=== PATIENT | female | born 1970 ===

== ENCOUNTER 2018-02-08 21:04 | Inpatient (IN) | payer MEDICAID, OTHER ==
[2018-02-08 21:04] VITALS: BMI 34.0
--- NOTE | 2018-02-08 21:51 | C.PDOC ---
History Of Present Illness 47 year old female with PMHx DM, HTN, PE, Chronic kidney disease presents to the ED c/o fever, abdominal pain and vomiting for the past 3 days. Patient states she has kidney stents placed on 2013 and have been changed each year last time was 2017. Patient also c/o burning on urination. Patient reports she is taking insulin and medication for her HTN. Patient denies chills, nausea, diarrhea, rash, hematuria, vaginal bleeding, vaginal discharge, weakness, numbness, CP, SOB. Time Seen by Provider: 02/08/18 21:47 Chief Complaint (Nursing): Abdominal Pain History Per: Patient History/Exam Limitations: no limitations Onset/Duration Of Symptoms: Days (3) Current Symptoms Are (Timing): Still Present Location Of Pain/Discomfort: Diffuse Radiation Of Pain To:: Flank Quality Of Discomfort: "Pain" Associated Symptoms: Fever, Vomiting, Urinary Symptoms. denies: Chills, Nausea, Diarrhea Alleviating Factors: None Recent travel outside of the [place]: No Additional History Per: Patient Abnormal Vaginal Bleeding: No Past Medical History Reviewed: Historical Data, Nursing Documentation, Vital Signs Vital Signs: Last Vital Signs Temp 98.4 F 02/08/18 21:12 Pulse 105 H 02/08/18 21:12 Resp 20 02/08/18 21:12 BP 157/98 H 02/08/18 21:12 Pulse Ox 97 02/08/18 21:12 - Medical History PMH: Anemia, Diabetes, Gastritis, HTN, Hypercholesterolemia, Malignancy (cervical CA post chemo), Pulmonary Embolism, Chronic Kidney Disease Surgical History: Endoscopy Denies: Pacemaker - [facility] Procedures CERVICAL CANAL DILATION (07/22/13) DILATION OF LEFT URETER WITH INTRALUMINAL DEVICE, ENDO (10/31/15) ENDOSCOP DEST OF OTH LESION OR TISU OF LRG INTESTN (08/14/14) EXCISION OF DUODENUM, ENDO, DIAGN (10/31/15) EXCISION OF STOMACH, PYLORUS, ENDO, DIAGN (10/31/15) INJECT ANTICOAGULANT (12/03/13) INJECT CA CHEMOTHER NEC (06/03/13) INJECT/INFUSE ELECTROLYT (09/07/14) INJECT/INFUSE NEC (09/07/14) OTHER ENDOSCOPY OF SM INTEST (06/03/13) PACKED CELL TRANSFUSION (12/03/13) PERCU NEPHROSTM W/O FRAG (06/03/13) PERCUTANEOUS PYELOGRAM (12/03/13) PLICATION OF VENA CAVA (12/03/13) RADIOTHERAPEUT PROC NEC (06/03/13) REMOV PYELOS/NEPHROS TUB (12/03/13) REMOVAL OF DRAINAGE DEVICE FROM URETER, ENDO (10/31/15) TRANSFUSE NONAUT RED BLOOD CELLS IN PERIPH VEIN, PERC (10/31/15) TU DESTRUC BLADD LES NEC (05/25/13) URETERAL CATHETERIZATION (12/03/13) VACCINATION NEC (12/03/13) Family History: States: Unknown Family Hx - Social History Hx Tobacco Use: No Hx Alcohol Use: No Hx Substance Use: No - Immunization History Hx Tetanus Toxoid Vaccination: No Hx Influenza Vaccination: No Hx Pneumococcal Vaccination: No Review Of Systems Constitutional: Positive for: Fever. Negative for: Chills Cardiovascular: Negative for: Chest Pain, Palpitations Respiratory: Negative for: Cough, Shortness of Breath Gastrointestinal: Positive for: Vomiting, Abdominal Pain. Negative for: Diarrhea Genitourinary: Positive for: Dysuria. Negative for: Hematuria, Vaginal Discharge, Vaginal Bleeding Musculoskeletal: Positive for: Back Pain Skin: Negative for: Rash Neurological: Negative for: Weakness, Numbness Physical Exam - Physical Exam Appears: Non-toxic, No Acute Distress Skin: Normal Color, Warm, Dry Head: Atraumatic, Normacephalic Eye(s): bilateral: Normal Inspection, PERRL, EOMI Neck: Normal ROM, Supple Chest: Symmetrical Cardiovascular: Rhythm Regular Respiratory: Normal Breath Sounds, No Rales, No Rhonchi, No Wheezing Gastrointestinal/Abdominal: Soft, Tenderness (epigastric), No Guarding, No Rebound Back: CVA Tenderness (left) Extremity: Normal ROM, No Tenderness, No Swelling Neurological/Psych: Oriented x3, Normal Speech, Normal Cognition Gait: Steady ED Course And Treatment - Laboratory Results Result Diagrams: 02/08/18 22:42 02/08/18 23:59 O2 Sat by Pulse Oximetry: 97 (ON RA) Pulse Ox Interpretation: Normal - CT Scan/US CT abd/pelvis Other Rad Studies (CT/US): Read By Radiologist, Radiology Report Reviewed CT/US Interpretation: CT SCAN OF THE ABDOMEN AND PELVIS WITHOUT ORAL OR IV CONTRAST. CLINICAL INDICATION: Left flank pain. TECHNIQUE: Axial and reformatted sagittal and coronal images of the abdomen pelvis obtained without IV contrast administration. COMPARISON: None. FINDINGS: Bilateral basilar subsegmental atelectatic pulmonary changes. 5.7 cm well-defined hypodense lesio n in the hepatic dome. Uncomplicated diverticulosis and moderate amount of fecal residue in the large bowels. Moderate right hydroureteronephrosis. Unremarkable right double-J catheter. Moderate left hydroureteronephrosis. Unremarkable left double-J catheter. IVC filter is seen. Normal unenhanced liver. Normal gallbladder and extrahepatic biliary system. Normal unenhanced spleen. Normal pancreas. . Normal bilateral adrenal glands. Normal size of the right kidney. There is no right renal mass. There are no right renal calculi. Normal size of the left kidney. There is no left renal mass. There are no left renal calculi. Normal visualized stomach. Normal small intestine. Normal colon. The appendix is visualized and appears normal. There is no demonstrated peritoneal fluid. Normal abdominal aorta. . Normal urinary bladder. There is no pelvic mass lesion or lymphadenopathy. There is no pelvic fluid. . Normal abdominal wall. Normal osseous structures. IMPRESSION: Bilateral basilar subsegmental atelectatic pulmonary changes. 5.7 cm well- defined hypodense lesion in the hepatic dome. Indeterminate. Uncomplicated diverticulosis and moderate amount of fecal residue in the large bowels. Moderate right hydroureteronephrosis. Unremarkable right double-J catheter. Moderate left hydroureteronephrosis. Unremarkable left double-J catheter. IVC filter is seen. . Electronically signed on Feb 09, 2018 1:24:58 AM EST by: Marjorie Foy M.D., Certified by ABR, MSK, Neuroradiology Medical Decision Making Medical Decision Making: Plan: * CT abd/pelvis * Labs * IV fluids * Zofran 4 mg IVP * Urine culture * UA 01:45 - discussed results with patient, patient has UTI and due to worsening kidney function patient is told she will nee to stay for observation. Patient agrees with plan 01:50 - spoke with Dr. Linda Shaw switchboard operator receptionist who accepts the patient for admission to his service Disposition Counseled Patient/Family Regarding: Studies Performed, Diagnosis - Disposition Disposition: HOSPITALIZED Disposition Time: 01:56 Condition: STABLE - Clinical Impression Clinical Impression: Acute on chronic kidney failure, Pyelonephritis, Anemia - Scribe Statement The provider has reviewed the documentation as recorded by the Scribe Porfirio Wharton All medical record entries made by the Nikkieibrufino were at my direction and p ersonally dictated by me. I have reviewed the chart and agree that the record accurately reflects my personal performance of the history, physical exam, medical decision making, and the department course for this patient. I have also personally directed, reviewed, and agree with the discharge instructions and disposition.
[2018-02-08] MEDS ORDERED: Sodium Chloride 0.9% 1,000 ML IV ONE (22:19)
[2018-02-08 22:48] LABS: BASO % 0.9 % (0.0-2.0); EOS # 0.2 K/uL (0.0-0.7); HEMOGLOBIN 9.2 g/dL (11.0-16.0); LYMPH # 1.3 K/uL (1.0-4.3); LYMPH % 23.7 % (20.0-40.0); MEAN CELL VOLUME 73.8 fL (81.0-99.0); MEAN CORPUSCULAR HEMOGLOBIN 23.8 pg (27.0-31.0); MEAN CORPUSCULAR HGB CONC 32.3 g/dL (33.0-37.0); MEAN PLATELET VOLUME 8.5 fL (7.2-11.7); MONO # 0.4 K/uL (0.0-0.8); MONO % 7.5 % (0.0-10.0); NEUT # 3.7 K/uL (1.8-7.0); NEUT % 64.9 % (50.0-75.0); RBC 3.87 Mil/uL (3.80-5.20); RED CELL DISTRIBUTION WIDTH 14.6 % (11.5-14.5)
[2018-02-08 22:50] LABS: WHITE BLOOD COUNT 5.6 K/uL (4.8-10.8)
[2018-02-08 22:57] LABS: SQUAMOUS EPITHIAL 1 /hpf (0-5); URINE BACTERIA RARE (<OCC); URINE BILIRUBIN NEGATIVE (NEGATIVE); URINE BLOOD 1+ (NEGATIVE); URINE CLARITY Clear (Clear); URINE COLOR Straw (YELLOW); URINE GLUCOSE (UA) 1+ mg/dL (Normal); URINE LEUKOCYTE ESTERASE 3+ Leu/uL (Negative); URINE PROTEIN NEGATIVE (NEGATIVE); URINE UROBILINOGEN NORMAL mg/dL (0.2-1.0)
[2018-02-09 00:29] LABS: ALB/GLOB RATIO 0.8 (1.0-2.1); ALBUMIN 3.4 g/dL (3.5-5.0); CALCIUM 8.5 mg/dl (8.6-10.4)
[2018-02-09] MEDS ORDERED: cefTRIAXone IV 1 gm in Dextros 50 ML IVPB STA (01:39)
[2018-02-09] MEDS ORDERED: cefTRIAXone 1 gm 1 GM/100 ML BAG IVPB ONE (01:49)
[2018-02-09] MEDS: (Novolin R) Insulin Human Regular 100 units/ml vial SC SCH ×4 (08:24→21:56)
[2018-02-09] MEDS ORDERED: Sodium Chloride 0.9% 1,000 ML IV SCH (08:45)
[2018-02-09] MEDS: cefTRIAXone 1 GM in Sodium Chloride 0.9% 100 ML IVPB SCH (09:19)
[2018-02-09] MEDS: Oxycodone/Acetaminophen 5/325 mg Tab PO PRN (09:27)
--- NOTE | 2018-02-09 10:10 | CT ---
Date of service: 02/08/2018 PROCEDURE: CT Abdomen and Pelvis without intravenous contrast HISTORY: left flank pain COMPARISON: 05/30/2017 TECHNIQUE: Without contrast.. Contrast dose: 0 Radiation dose: Total exam DLP = 544.38 mGy-cm. This CT exam was performed using one or more of the following dose reduction techniques: Automated exposure control, adjustment of the mA and/or kV according to patient size, and/or use of iterative reconstruction technique. FINDINGS: LOWER THORAX: Minimal linear scar/atelectasis in lingular segment left upper lobe. No infiltrate or pleural effusion. LIVER: 6.0 cm rounded low-attenuation mass in the superior right lobe of the liver beneath the dome of the diaphragm. Slightly decreased in size from prior examination. It is heterogeneous with areas of low attenuation likely reflecting central necrosis. There is no other hepatic mass identified. The liver is normal in size, contour and attenuation. There is no biliary ductal dilatation. GALLBLADDER AND BILE DUCTS: Unremarkable. PANCREAS: Unremarkable. No gross lesion or ductal dilatation. SPLEEN: Unremarkable. ADRENALS: Unremarkable. No mass. KIDNEYS AND URETERS: Severe bilateral hydronephrosis and hydroureter. Bilateral ureteral stents. Etiology for the urinary tract obstruction is not clear from this examination. No renal mass. No renal calculus. VASCULATURE: Unremarkable. No aortic aneurysm. No aortic atherosclerotic calcification or mural plaque present. BOWEL: Unremarkable. No obstruction. No gross mural thickening. APPENDIX: Unremarkable. Normal appendix. PERITONEUM: Unremarkable. No free fluid. No free air. LYMPH NODES: Mildly enlarged retroperitoneal nodes, largest up to approximately 13 mm short axis. Numerous shotty subcentimeter retroperitoneal nodes. Significance uncertain. No pelvic lymphadenopathy. Shotty subcentimeter gastrohepatic ligament lymphadenopathy. BLADDER: Nondistended. Bilateral ureteral stents. No gross abnormality. REPRODUCTIVE: Normal atrophic uterus, likely postmenopausal. Please correlate. BONES: No acute fracture. OTHER FINDINGS: None. IMPRESSION: Severe bilateral hydronephrosis and hydroureter. Bilateral ureteral stents. Large partially necrotic mass in the right lobe of the liver slightly decreased in size from examination of 05/30/2017. No biliary obstruction. Mild retroperitoneal lymphadenopathy, uncertain significance. The preliminary findings for this examination were reported by [facility] Radiology at 11:42 p.m. on 02/08/2018. There is discordance of this report with the preliminary findings. Presence of retroperitoneal lymphadenopathy was not described in the preliminary report of this examination.
[2018-02-09 11:31] LABS: BASO % 0.5 % (0.0-2.0); EOS # 0.2 K/uL (0.0-0.7); EOS % 4.4 % (0.0-4.0); HEMOGLOBIN 7.7 g/dL (11.0-16.0); LYMPH # 1.3 K/uL (1.0-4.3); LYMPH % 24.4 % (20.0-40.0); MEAN CELL VOLUME 74.1 fL (81.0-99.0); MEAN CORPUSCULAR HEMOGLOBIN 23.8 pg (27.0-31.0); MEAN CORPUSCULAR HGB CONC 32.2 g/dL (33.0-37.0); MEAN PLATELET VOLUME 8.2 fL (7.2-11.7); MONO # 0.4 K/uL (0.0-0.8); MONO % 8.5 % (0.0-10.0); NEUT # 3.2 K/uL (1.8-7.0); NEUT % 62.2 % (50.0-75.0); RBC 3.25 Mil/uL (3.80-5.20); RED CELL DISTRIBUTION WIDTH 14.3 % (11.5-14.5); WHITE BLOOD COUNT 5.1 K/uL (4.8-10.8)
[2018-02-09 11:46] LABS: ALB/GLOB RATIO 0.8 (1.0-2.1); ALBUMIN 3.3 g/dL (3.5-5.0); CALCIUM 8.7 mg/dl (8.6-10.4)
[2018-02-09] MEDS ORDERED: Sod Polystyrene Sulf 15 gm/60 ml Susp PO ONE ×2 (12:13→12:14)
[2018-02-09] MEDS ORDERED: Ferric Sodium Gluconat Complex 62.5 mg/5 ml Vial IVPB ONE (12:46)
[2018-02-09] MEDS ORDERED: Ferric Sodium Gluconat Complex 125 MG in Sodium Chloride 0.9% 100 ML IVPB ONE (14:00)
--- NOTE | 2018-02-09 15:33 | CP.PCM.CON ---
History of Present Illness - History of Present Illness History of Present Illness: Nephrology Consultation Note: Assessment: critical Acute Kidney Injury (N17.9) likely due to obstruction uropathy /hydroureteronephrosis Hyperkalemia, NAGMA Diabetic chronic Kidney Disease (E11.22) Hypertensive Chronic Kidney Disease (I12.9) Chronic Kidney Disease (N18.3) Stage 3 with ? mg proteinuria (R80.9) likely due to KIRSTIE, obstruction Anemia (D64.9), hx of cervical SCC Plan No acute need for renal replacement therapy at this time but may need soon and will need close follow up. anticipate renal recovery as urinary obstruction is relieved. pt will need ureteral stent change and or percutaneous nephrostomy tube placement. d/w IR and urology. if pt renally stable then will be planned for stent change monday however if renal function worsens with hyperkalemic then nephrostomy tube over . keep NPO MN. check PT/PTT/INR Hypertension control with meds as ordered. Maintain hemodynamics stable. Avoid hypotension. Patient not on ACEI/ARB due to recent KIRSTIE Monitor Input/Output, daily weights and renal function with basic metabolic panel continue with IVF as normal saline. added sodium bicarb ? recurrence of her malignancy. consult heme/onc. may need TELECOMMUNICATIONS PROFESSIONAL input PRBC as needed Check urine analysis, spot protein/creatinine, albumin/creatinine ratio Check HIV/Hep B and Hep C serology Anemia work up with TSAT/Ferritin/Vitamin B12/folate Check for 25-OH vitamin D, iPTH, phosphorus level. Dose meds/antibiotics for reduced GFR. Avoid fleets enema/magnesium based laxatives. Avoid nephrotoxins/NSAIDs/ iodinated contrast (unless needed emergently) Glycemic control Further work up/management as per primary team Thanks for allowing me to participate in care of your patient. Will follow patient with you. Please call if any Qs. had d/w team Dr Trevon Maria Office: [phone] Chief Complaint; nausea/vomitting Reason for consult: Acute Kidney Injury HPI: Pt is a 47 F with hx of diabetes Mellitus ( years), hypertension (years) CKD 3 with baseline cr 1.5 with AKIs in past, b/l hydroureteronephrosis s/p stents (Dr Mac), hx of cervical SCC presented with complaints of nasuea vomitting and upset stomach for last few days. renal consult for KIRSTIE. pt says she is making urine normally Denies OTC/herbal meds or NSAIDs except alleve for 2 days No recent iodinated contrast exposure. No obvious episodes of low BP. pt says last time stents were changed 1 year ago ROS: Cardiovascular: No chest pain. Pulmonary: No shortness of breath Gastrointestinal: denies abdominal pain No nausea. No vomiting. Genitourinary: mild pain while urinating. Denies blood in urine. All other negative except as mentioned in HPI Physical Examination: General Appearance: Comfortable, in no acute respiratory distress, co-operative . Vitals reviewed and noted as below Head; Atraumatic, normocephalic ENT: no ulcers no thrush. Tongue is midline. Oropharynx: no rash or ulcers. EYES: Pupils are equal, round and reactive to light accommodation. Eye muscles and extraocular movement intact. Sclera is anicteric. Neck; supple no lymphadenopathy, no thyromegaly or bruit Lungs: Normal respiratory rate/effort. Breath sounds bilateral equal and clear Heart: Normal rate. s1s2 normal. No rub or gallop. Extremities: no edema. No varicose veins Neurological: Patient is alert, awake and oriented to person, place and time. No focal deficit. Strength bilateral appropriate and equal Skin: Warm and dry. Normal turgor. No rash. Palpitation: Normal elasticity for age Abdomen: Abdomen is soft/distended. Bowel sounds +. There is no abdominal tenderness, no guarding/rigidity no organomegaly Psych: limited insight and normal affect/mood MSK: no joint tenderness or swelling. Digits and nails normal, no deformity : kidney or bladder not palpable Labs/imaging reviewed. Past medical history, past surgical history, family history, social history, allergy reviewed and noted as below Family hx: no hx of CKD. Rest non-contributory imaging: b/l severe hydronephrosis. b/l ureteral stents. has retroperitoneal lymphadenpathy and ? necrotic mass above liver 6 cm size Past Patient History - Infectious Disease Hx of Infectious Diseases: None - Tetanus Immunizations Tetanus Immunization: Unknown - Past Medical History & Family History Past Medical History?: Yes - Past Social History Smoking Status: Never Smoked - CARDIAC Hx Cardiac Disorders: Yes Hx Hypercholesterolemia: Yes Hx Hypertension: Yes Hx Pacemaker: No - PULMONARY Hx Respiratory Disorders: Yes Hx Pulmonary Embolism: Yes - NEUROLOGICAL Hx Neurological Disorder: No Hx Paralysis: No - HEENT Hx HEENT Problems: No - RENAL Hx Chronic Kidney Disease: Yes - ENDOCRINE/METABOLIC Hx Endocrine Disorders: Yes Hx Diabetes Mellitus Type 1: Yes - HEMATOLOGICAL/ONCOLOGICAL Hx Blood Disorders: Yes Hx Anemia: Yes - INTEGUMENTARY Hx Dermatological Problems: No - MUSCULOSKELETAL/RHEUMATOLOGICAL Hx Musculoskeletal Disorders: No Hx Falls: No - GASTROINTESTINAL Hx Gastrointestinal Disorders: Yes Hx Gastritis: Yes - GENITOURINARY/GYNECOLOGICAL Hx Genitourinary Disorders: Yes Hx Cervical Cancer: Yes (RADIATION AND CHEMO ONLY-NO SURGERY) Hx Urinary Tract Infection: Yes Other/Comment: Vaginal tumor cancer with radiation - PSYCHIATRIC Hx Psychophysiologic Disorder: No Hx Substance Use: No - SURGICAL HISTORY Hx Surgeries: Yes Other/Comment: kidney surgery - ANESTHESIA Hx Anesthesia: Yes Hx Anesthesia Reactions: Yes (VOMITING) Hx Malignant Hyperthermia: No Meds Allergies/Adverse Reactions: Allergies Allergy/AdvReac Type Severity Reaction Status Date / Time No Known Allergies Allergy Verified 02/08/18 21:16 - Medications Medications: Current Medications Amlodipine Besylate (Norvasc) 5 mg PO DAILY SHELLEY Last Admin: 02/09/18 09:18 Dose: 5 mg Ceftriaxone Sodium 1 gm/ (Sodium Chloride) 100 mls @ 100 mls/hr IVPB DAILY SHELLEY; Protocol Last Admin: 02/09/18 09:19 Dose: 100 mls/hr Sodium Chloride (Sodium Chloride 0.9%) 1,000 mls @ 100 mls/hr IV .Q10H SHELLEY Last Admin: 02/09/18 08:45 Dose: 100 mls/hr Ferric Sodium Gluconate Complex 125 mg/ Sodium Chloride 110 mls @ 110 mls/hr IVPB ONCE ONE Stop: 02/09/18 14:59 Influenza Virus Vaccine (Fluzone Quad [id number]) 60 mcg IM .ONCE ONE Stop: 02/11/18 10:01 Insulin Human Regular (Novolin R) 0 unit SC ACHS SHELLEY; Protocol Last Admin: 02/09/18 08:24 Dose: 2 units Oxycodone/Acetaminophen (Percocet 5/325 Mg Tab) 1 tab PO Q4H PRN PRN Reason: Pain, Mild (1-3) Stop: 02/12/18 02:34 Last Admin: 02/09/18 09:27 Dose: 1 tab Sodium Polystyrene Sulfonate (Kayexalate Susp) 15 gm PO DAILY SHELLEY Stop: 02/13/18 10:01 Results - Vital Signs Recent Vital Signs: Last Vital Signs Temp 98.3 F 02/09/18 08:42 Pulse 76 02/09/18 10:10 Resp 28 H 02/09/18 08:42 BP 145/74 02/09/18 10:10 Pulse Ox 100 02/09/18 08:42 - Labs Result Diagrams: 02/09/18 11:21 02/09/18 11:21 Labs: Laboratory Results - last 24 hr 02/08/18 02/08/18 02/08/18 21:11 22:42 22:42 WBC 5.6 D RBC 3.87 Hgb 9.2 L Hct 28.5 L MCV 73.8 L MCH 23.8 L MCHC 32.3 L RDW 14.6 H Plt Count 262 MPV 8.5 Neut % (Auto) 64.9 Lymph % (Auto) 23.7 [place] % (Auto) 7.5 Eos % (Auto) 3.0 Baso % (Auto) 0.9 Neut # (Auto) 3.7 Lymph # (Auto) 1.3 [place] # (Auto) 0.4 Eos # (Auto) 0.2 Baso # (Auto) 0.0 Sodium Potassium Chloride Carbon Dioxide Anion Gap BUN Creatinine Est GFR ( Amer) Est GFR (Non-Af Amer) POC Glucose (mg/dL) 186 H Random Glucose Calcium Phosphorus Magnesium Total Bilirubin AST ALT Alkaline Phosphatase Total Protein Albumin Globulin Albumin/Globulin Ratio Urine Color Straw Urine Clarity Clear Urine pH 7.0 Ur Specific [place] 1.005 Urine Protein Negative Urine Glucose (UA) 1+ Urine Ketones Negative Urine Blood 1+ H Urine Nitrate Negative Urine Bilirubin Negative Urine Urobilinogen Normal Ur Leukocyte Esterase 3+ H Urine WBC (Auto) 28 H Urine RBC (Auto) 5 H Ur Squamous Epith Cells 1 Urine Bacteria Rare 02/08/18 02/09/18 02/09/18 23:59 07:55 11:21 WBC 5.1 RBC 3.25 L Hgb 7.7 L Hct 24.1 L MCV 74.1 L MCH 23.8 L MCHC 32.2 L RDW 14.3 Plt Count 244 MPV 8.2 Neut % (Auto) 62.2 Lymph % (Auto) 24.4 [place] % (Auto) 8.5 Eos % (Auto) 4.4 H Baso % (Auto) 0.5 Neut # (Auto) 3.2 Lymph # (Auto) 1.3 [place] # (Auto) 0.4 Eos # (Auto) 0.2 Baso # (Auto) 0.0 Sodium 140 Potassium 5.1 Chloride 110 H Carbon Dioxide 19 L Anion Gap 15 BUN 43 H Creatinine 5.6 H Est GFR ( Amer) 10 Est GFR (Non-Af Amer) 8 POC Glucose (mg/dL) 214 H Random Glucose 151 H Calcium 8.5 L Phosphorus Magnesium Total Bilirubin 0.3 AST 12 L D ALT 13 Alkaline Phosphatase 114 Total Protein 7.5 Albumin 3.4 L Globulin 4.1 H Albumin/Globulin Ratio 0.8 L Urine Color Urine Clarity Urine pH Ur Specific [place] Urine Protein Urine Glucose (UA) Urine Ketones Urine Blood Urine Nitrate Urine Bilirubin Urine Urobilinogen Ur Leukocyte Esterase Urine WBC (Auto) Urine RBC (Auto) Ur Squamous Epith Cells Urine Bacteria 02/09/18 02/09/18 11:21 11:40 WBC RBC Hgb Hct MCV MCH MCHC RDW Plt Count MPV Neut % (Auto) Lymph % (Auto) [place] % (Auto) Eos % (Auto) Baso % (Auto) Neut # (Auto) Lymph # (Auto) [place] # (Auto) Eos # (Auto) Baso # (Auto) Sodium 137 Potassium 5.9 H Chloride 108 H Carbon Dioxide 19 L Anion Gap 16 BUN 41 H Creatinine 5.9 H Est GFR ( Amer) 9 Est GFR (Non-Af Amer) 8 POC Glucose (mg/dL) 157 H Random Glucose 179 H Calcium 8.7 Phosphorus 4.5 Magnesium 1.7 Total Bilirubin 0.3 AST 16 ALT 14 Alkaline Phosphatase 92 Total Protein 7.6 Albumin 3.3 L Globulin 4.3 H Albumin/Globulin Ratio 0.8 L Urine Color Urine Clarity Urine pH Ur Specific [place] Urine Protein Urine Glucose (UA) Urine Ketones Urine Blood Urine Nitrate Urine Bilirubin Urine Urobilinogen Ur Leukocyte Esterase Urine WBC (Auto) Urine RBC (Auto) Ur Squamous Epith Cells Urine Bacteria
--- NOTE | 2018-02-09 16:12 | CP.PCM.PN ---
Subjective - Date & Time of Evaluation Date of Evaluation: 02/09/18 Time of Evaluation: 10:35 - Subjective Subjective: Medicine progress note (Dr. Mckeon's service) Patient was seen and examined at bedside. Patient states that she is with mild symptomatic improvement but still admits to nausea and lower abdominal and back discomfort. Patient denies fever, chills, vomiting, chest pain, palpitations, shortness of breath and dizziness. 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 Patient also admits to associated symptoms of dysuria. Patient admits to symptoms of subjective fever, chills, nausea and vomiting. PMHx: Bilateral hydronephrosis CKD stage 2; Rectosigmoid AVM and lower GI bleed; Squamous cell carcinoma of the cervix s/p chemoradiotherapy and conization in 2016 still with uterus and ovaries, DM on insulin, HTN, gastritis and chronic non-compliance, anemia iron deficiency Surgeries: tubal ligation, colonoscopy to fix rectosigmoid AVM, conization of cervix Famhx: denies Meds: Patient has history of chronic medical non compliance. ( Please refer EMR) Allergies: Denies Social: Lives at home, unemployed. Denies current or former use of tobacco, ETOH or illicit drug tamanna. no EtOH. With 4 children Objective - Vital Signs/Intake and Output Vital Signs (last 24 hours): Temp Pulse Resp BP Pulse Ox 98.3 F 76 28 H 145/74 100 02/09/18 08:42 02/09/18 10:10 02/09/18 08:42 02/09/18 10:10 02/09/18 08:42 Intake and Output: 02/09/18 02/09/18 06:59 18:59 Intake Total 200 Balance 200 - Medications Medications: Current Medications Amlodipine Besylate (Norvasc) 5 mg PO DAILY [facility] Last Admin: 02/09/18 09:18 Dose: 5 mg Ceftriaxone Sodium 1 gm/ (Sodium Chloride) 100 mls @ 100 mls/hr IVPB DAILY [facility]; Protocol Last Admin: 02/09/18 09:19 Dose: 100 mls/hr Sodium Chloride (Sodium Chloride 0.9%) 1,000 mls @ 100 mls/hr IV .Q10H [facility] Last Admin: 02/09/18 08:45 Dose: 100 mls/hr Influenza Virus Vaccine (Fluzone Quad [id number]) 60 mcg IM .ONCE ONE Stop: 02/11/18 10:01 Insulin Human Regular (Novolin R) 0 unit SC ACHS [facility]; Protocol Last Admin: 02/09/18 12:30 Dose: 1 units Oxycodone/Acetaminophen (Percocet 5/325 Mg Tab) 1 tab PO Q4H PRN PRN Reason: Pain, Mild (1-3) Stop: 02/12/18 02:34 Last Admin: 02/09/18 09:27 Dose: 1 tab Sodium Bicarbonate (Sodium Bicarbonate Tab) 1,300 mg PO TID [facility] Sodium Polystyrene Sulfonate (Kayexalate Susp) 15 gm PO DAILY [facility] Stop: 02/13/18 10:01 - Labs Labs: 02/09/18 11:21 02/09/18 11:21 - Constitutional Appears: No Acute Distress - Head Exam Head Exam: ATRAUMATIC, NORMAL INSPECTION - Eye Exam Eye Exam: EOMI, Normal appearance - ENT Exam ENT Exam: Mucous Membranes Moist - Respiratory Exam Respiratory Exam: Clear to Ausculation Bilateral, NORMAL BREATHING PATTERN. absent: Rhonchi, Wheezes - Cardiovascular Exam Cardiovascular Exam: REGULAR RHYTHM, +S1, +S2. absent: Tachycardia, Irregular Rhythm - GI/Abdominal Exam GI & Abdominal Exam: Soft, Normal Bowel Sounds. absent: Distended, Firm, Guarding, Rigid, Tenderness - Extremities Exam Extremities Exam: Normal Inspection. absent: Calf Tenderness, Pedal Edema - Back Exam Back Exam: CVA tenderness (L), CVA tenderness (R) Additional comments: Right CVA> Left CVA - Neurological Exam Neurological Exam: Alert, Awake, Oriented x3 - Psychiatric Exam Psychiatric exam: Normal Affect - Skin Skin Exam: Normal Color Assessment and Plan (1) Flank pain Assessment & Plan: Consultation: - Dr. Andrew hampton Management as per recommendation Possible plans for ureteral stent placement on Monday Imaging: Abdomen/Pelvis CT: Severe bilateral hydronephrosis and hydroureter. Bilateral ureteral stents. Large partially necrotic mass in the right lobe of the liver slightly decreased in size from examination of 05/30/2017. No biliary ob struction. Mild retroperitoneal lymphadenopathy, uncertain significance. There is discordance of this report with the preliminary findings. Presence of retroperitoneal lymphadenopathy was not described in the preliminary report of this examination. Labs/Vital signs: - UA: le (3+) - Afebrile Medications: Rocephine 1gm IV daily NS @100mls/hr Percocet 1 tab PO Q4H PRN Status: Acute (2) Acute on chronic kidney failure Assessment & Plan: 2/2 uropathy obstruction/hydroureternephrosis Consultation: - Dr. Maria---> Help appreciated Management as per recommendation Recommendation for ureteral change or placement for nephrostomy percutaneous placement Avoid Acei/ARB NS @ 75cc/hr due to HTN Sodium Bicarbonate 1,300mg PO TID Status: Acute (3) Hypertension Assessment & Plan: Norvasc 5mg PO daily Status: Acute (4) Anemia of renal disease Assessment & Plan: H/H: 9.2/28.5--->7.7/24.1 Given ferrlecit 125mg IV once Continue to monitor labs F/u stool occult Type and screen ordered Status: Acute (5) Hyperkalemia Assessment & Plan: 2/2 to acute renal failure Kayexalate 30gm once Kayexalate 15gm PO daily ( 3 days) Monitor with am labs Status: Acute (6) Prophylactic measure Assessment & Plan: DVT: SCDs, chemical anti-coagulate contraindicated due to acute anemia GI: Not indicated at this time Disposition: Plans for possible ureteral stent replacement monday All plans and management discussed with Dr. Mckeon Status: Acute
[2018-02-09] MEDS: Sodium Chloride 0.9% 1,000 ML IV SCH (16:30)
[2018-02-09 17:49] LABS: IRON 207 ug/dL (37-170)
[2018-02-09 17:58] LABS: % IRON SATURATION 100 (20-55); TOTAL IRON BINDING CAPACITY 206 ug/dL (250-450)
[2018-02-09 18:32] LABS: BLOOD UREA NITROGEN 37 mg/dL (7-17); GFR NON-AFRICAN AMERICAN 8
[2018-02-09 19:03] LABS: HIV 1&2 ANTIBODY NEGATIVE (NEGATIVE)
[2018-02-09 19:30] LABS: HEPATITIS B SURFACE AG Negative (NEGATIVE)
[2018-02-09 19:35] LABS: HEPATITIS B CORE AB NEGATIVE (NEGATIVE)
[2018-02-09 19:48] LABS: HEPATITIS C ANTIBODY NEGATIVE (NEGATIVE)
[2018-02-09 20:05] LABS: FOLATE 9.4 ng/mL
[2018-02-09 20:22] LABS: INR 1.1; PROTHROMBIN TIME 12.3 SECONDS (9.7-12.2)
[2018-02-10] MEDS: Sodium Chloride 0.9% 1,000 ML IV SCH ×2 (04:30→20:00)
[2018-02-10 07:34] LABS: BASO % 0.7 % (0.0-2.0); EOS # 0.2 K/uL (0.0-0.7); EOS % 4.4 % (0.0-4.0); HEMOGLOBIN 8.1 g/dL (11.0-16.0); LYMPH # 1.5 K/uL (1.0-4.3); LYMPH % 26.6 % (20.0-40.0); MEAN PLATELET VOLUME 8.1 fL (7.2-11.7); MONO # 0.4 K/uL (0.0-0.8); MONO % 7.4 % (0.0-10.0); NEUT # 3.4 K/uL (1.8-7.0); NEUT % 60.9 % (50.0-75.0); RBC 3.38 Mil/uL (3.80-5.20); RED CELL DISTRIBUTION WIDTH 14.3 % (11.5-14.5); WHITE BLOOD COUNT 5.6 K/uL (4.8-10.8)
[2018-02-10 08:10] LABS: ALB/GLOB RATIO 0.8 (1.0-2.1); ALBUMIN 3.4 g/dL (3.5-5.0); CALCIUM 8.9 mg/dl (8.6-10.4)
[2018-02-10] MEDS: (Novolin R) Insulin Human Regular 100 units/ml vial SC SCH ×4 (08:28→21:30)
[2018-02-10] MEDS ORDERED: Ergocalciferol 50,000 Intl Units Cap PO SCH (10:00)
[2018-02-10] MEDS: Sod Polystyrene Sulf 15 gm/60 ml Susp PO SCH (10:15)
[2018-02-10] MEDS: cefTRIAXone 1 GM in Sodium Chloride 0.9% 100 ML IVPB SCH (10:21)
--- NOTE | 2018-02-10 15:45 | CP.PCM.PN ---
Subjective - Date & Time of Evaluation Date of Evaluation: 02/10/18 Time of Evaluation: 15:44 - Subjective Subjective: Nephrology Consultation Note: Assessment: stable Acute Kidney Injury (N17.9) likely due to obstruction uropathy/hy droureteronephrosis Hyperkalemia, NAGMA Diabetic chronic Kidney Disease (E11.22) Hypertensive Chronic Kidney Disease (I12.9) Chronic Kidney Disease (N18.3) Stage 3 with ? mg proteinuria (R80.9) likely due to KIRSTIE, obstruction Anemia (D64.9), hx of cervical SCC Plan No acute need for renal replacement therapy at this time but may need soon and will need close follow up. anticipate renal recovery as urinary obstruction is relieved. pt will need ureteral stent change and or percutaneous nephrostomy tube placement. d/w IR and urology. if pt renally stable then will be planned for stent change monday however if renal function worsens with hyperkalemic then nephrostomy tube over . stable Cr and K today. hence will await to change stent monday Hypertension control with meds as ordered. Maintain hemodynamics stable. Avoid hypotension. Patient not on ACEI/ARB due to recent KIRSTIE Monitor Input/Output, daily weights and renal function with basic metabolic panel continue with IVF as normal saline. added sodium bicarb ? recurrence of her malignancy. consult heme/onc. may need [employer] SPECIALIST input PRBC as needed Check urine analysis, spot protein/creatinine, albumin/creatinine ratio Check HIV/Hep B and Hep C serology Anemia work up with TSAT/Ferritin/Vitamin B12/folate Check for 25-OH vitamin D, iPTH, phosphorus level. Dose meds/antibiotics for reduced GFR. Avoid fleets enema/magnesium based laxatives. Avoid nephrotoxins/NSAIDs/ iodinated contrast (unless needed emergently) Glycemic control Further work up/management as per primary team Thanks for allowing me to participate in care of your patient. Will follow patient with you. Please call if any Qs. had d/w team Dr Trevon Maria Office: [phone] Chief Complaint; nausea/vomitting Reason for consult: Acute Kidney Injury HPI: Pt is a 47 F with hx of diabetes Mellitus ( years), hypertension (years) CKD 3 with baseline cr 1.5 with AKIs in past, b/l hydroureteronephrosis s/p stents (Dr Mac), hx of cervical SCC presented with complaints of nasuea vo mitting and upset stomach for last few days. renal consult for KIRSTIE. pt says she is making urine normally Denies OTC/herbal meds or NSAIDs except alleve for 2 days No recent iodinated contrast exposure. No obvious episodes of low BP. pt says last time stents were changed 1 year ago ROS: Cardiovascular: No chest pain. Pulmonary: No shortness of breath Gastrointestinal: denies abdominal pain No nausea. No vomiting. Genitourinary: mild pain while urinating. Denies blood in urine. All other negative except as mentioned in HPI Physical Examination: General Appearance: Comfortable, in no acute respiratory distress, co-operative . Vitals reviewed and noted as below Head; Atraumatic, normocephalic ENT: no ulcers no thrush. Tongue is midline. Oropharynx: no rash or ulcers. EYES: Pupils are equal, round and reactive to light accommodation. Eye muscles and extraocular movement intact. Sclera is anicteric. Neck; supple no lymphadenopathy, no thyromegaly or bruit Lungs: Normal respiratory rate/effort. Breath sounds bilateral equal and clear Heart: Normal rate. s1s2 normal. No rub or gallop. Extremities: no edema. No varicose veins Neurological: Patient is alert, awake and oriented to person, place and time. No focal deficit. Strength bilateral appropriate and equal Skin: Warm and dry. Normal turgor. No rash. Palpitation: Normal elasticity for age Abdomen: Abdomen is soft/distended. Bowel sounds +. There is no abdominal tenderness, no guarding/rigidity no organomegaly Psych: limited insight and normal affect/mood MSK: no joint tenderness or swelling. Digits and nails normal, no deformity : kidney or bladder not palpable Labs/imaging reviewed. Past medical history, past surgical history, family history, social history, allergy reviewed and noted as below Family hx: no hx of CKD. Rest non-contributory imaging: b/l severe hydronephrosis. b/l ureteral stents. has retroperitoneal lymphadenpathy and ? necrotic mass above liver 6 cm size Objective - Vital Signs/Intake and Output Vital Signs (last 24 hours): Temp Pulse Resp BP Pulse Ox 98.1 F 100 H 20 151/93 H 95 02/10/18 07:00 02/10/18 07:00 02/10/18 07:00 02/10/18 07:00 02/10/18 07:00 Intake and Output: 02/10/18 02/10/18 06:59 18:59 Intake Total 600 Balance 600 - Medications Medications: Current Medications Amlodipine Besylate (Norvasc) 5 mg PO DAILY [facility] Last Admin: 02/10/18 10:15 Dose: 5 mg Ergocalciferol (Drisdol 50,000 Intl Units Cap) 1 cap PO Q7D [facility] Last Admin: 02/10/18 10:14 Dose: 1 cap Ceftriaxone Sodium 1 gm/ (Sodium Chloride) 100 mls @ 100 mls/hr IVPB DAILY [facility]; Protocol Last Admin: 02/10/18 10:21 Dose: 100 mls/hr Sodium Chloride (Sodium Chloride 0.9%) 1,000 mls @ 75 mls/hr IV .[id number] [facility] Last Admin: 02/10/18 04:30 Dose: 75 mls/hr Influenza Virus Vaccine (Fluzone Quad [id number]) 60 mcg IM .ONCE ONE Stop: 02/11/18 10:01 Insulin Human Regular (Novolin R) 0 unit SC ACHS [facility]; Protocol Last Admin: 02/10/18 12:11 Dose: 1 units Ondansetron HCl (Zofran Inj) 4 mg IVP Q6 PRN PRN Reason: Nausea/Vomiting Last Admin: 02/10/18 10:21 Dose: 4 mg Oxycodone/Acetaminophen (Percocet 5/325 Mg Tab) 1 tab PO Q4H PRN PRN Reason: Pain, Mild (1-3) Stop: 02/12/18 02:34 Last Admin: 02/09/18 09:27 Dose: 1 tab Sodium Bicarbonate (Sodium Bicarbonate Tab) 1,300 mg PO TID [facility] Last Admin: 02/10/18 14:04 Dose: 1,300 mg Sodium Polystyrene Sulfonate (Kayexalate Susp) 15 gm PO DAILY [facility] Stop: 02/13/18 10:01 Last Admin: 02/10/18 10:15 Dose: 15 gm - Labs Labs: 02/10/18 07:20 02/10/18 07:20 PT 12.3 SECONDS (9.7-12.2) H 02/09/18 20:05 INR 1.1 02/09/18 20:05 APTT 33 SECONDS (21-34) 02/09/18 20:05
--- NOTE | 2018-02-10 19:54 | CP.PCM.CON ---
History of Present Illness - History of Present Illness History of Present Illness: 47 year old female with a history of HTN, DM, PE, cervical cancer diagnosed in 2014 (IIIB) complicated by hydronephrosis s/p B/L ureteral stents, s/p chemoradiation with Dr. Saldana, presenting with N/V and burning with urination. The patient notes to worsening flank pain associated with N/V. A CT scan of the A/P was done which revealed retroperitoneal lymphadenopathy and a necrotic liver mass. Of note, an MRI of the abdomen in 2013 revealed this liver mass which was felt to be a hemangioma. Past medical history: HTN, DM, PE Past surgical history: Denies Family history: Denies hematologic and oncologic problems Social history: Denies tobacco, alcohol, and illicit drug use. Allergies: NKA Review of systems: All remaining review of systems including HEENT, cardiovascular, respiratory, gastrointestinal, genitourinary, musculoskeletal, dermatologic, neurologic and psychiatric are negative unless mentioned in the HPI. Past Patient History - Infectious Disease Hx of Infectious Diseases: None - Tetanus Immunizations Tetanus Immunization: Unknown - Past Medical History & Family History Past Medical History?: Yes - Past Social History Smoking Status: Never Smoked - CARDIAC Hx Cardiac Disorders: Yes Hx Hypercholesterolemia: Yes Hx Hypertension: Yes Hx Pacemaker: No - PULMONARY Hx Respiratory Disorders: Yes Hx Pulmonary Embolism: Yes - NEUROLOGICAL Hx Neurological Disorder: No Hx Paralysis: No - HEENT Hx HEENT Problems: No - RENAL Hx Chronic Kidney Disease: Yes - ENDOCRINE/METABOLIC Hx Endocrine Disorders: Yes Hx Diabetes Mellitus Type 1: Yes - HEMATOLOGICAL/ONCOLOGICAL Hx Blood Disorders: Yes Hx Anemia: Yes - INTEGUMENTARY Hx Dermatological Problems: No - MUSCULOSKELETAL/RHEUMATOLOGICAL Hx Musculoskeletal Disorders: No Hx Falls: No - GASTROINTESTINAL Hx Gastrointestinal Disorders: Yes Hx Gastritis: Yes - GENITOURINARY/GYNECOLOGICAL Hx Genitourinary Disorders: Yes Hx Cervical Cancer: Yes (RADIATION AND CHEMO ONLY-NO SURGERY) Hx Urinary Tract Infection: Yes Other/Comment: Vaginal tumor cancer with radiation - PSYCHIATRIC Hx Psychophysiologic Disorder: No Hx Substance Use: No - SURGICAL HISTORY Hx Surgeries: Yes Other/Comment: kidney surgery - ANESTHESIA Hx Anesthesia: Yes Hx Anesthesia Reactions: Yes (VOMITING) Hx Malignant Hyperthermia: No Meds Allergies/Adverse Reactions: Allergies Allergy/AdvReac Type Severity Reaction Status Date / Time No Known Allergies Allergy Verified 02/08/18 21:16 - Medications Medications: Current Medications Amlodipine Besylate (Norvasc) 10 mg PO DAILY [facility] Ergocalciferol (Drisdol 50,000 Intl Units Cap) 1 cap PO Q7D [facility] Last Admin: 02/10/18 10:14 Dose: 1 cap Ceftriaxone Sodium 1 gm/ (Sodium Chloride) 100 mls @ 100 mls/hr IVPB DAILY [facility]; Protocol Last Admin: 02/10/18 10:21 Dose: 100 mls/hr Sodium Chloride (Sodium Chloride 0.9%) 1,000 mls @ 75 mls/hr IV .[id number] [facility] Last Admin: 02/10/18 04:30 Dose: 75 mls/hr Influenza Virus Vaccine (Fluzone Quad [id number]) 60 mcg IM .ONCE ONE Stop: 02/11/18 10:01 Insulin Human Regular (Novolin R) 0 unit SC ACHS [facility]; Protocol Last Admin: 02/10/18 17:24 Dose: 2 units Ondansetron HCl (Zofran Inj) 4 mg IVP Q6 PRN PRN Reason: Nausea/Vomiting Last Admin: 02/10/18 10:21 Dose: 4 mg Oxycodone/Acetaminophen (Percocet 5/325 Mg Tab) 1 tab PO Q4H PRN PRN Reason: Pain, Mild (1-3) Stop: 02/12/18 02:34 Last Admin: 02/09/18 09:27 Dose: 1 tab Sodium Bicarbonate (Sodium Bicarbonate Tab) 1,300 mg PO TID [facility] Last Admin: 02/10/18 17:24 Dose: 1,300 mg Sodium Polystyrene Sulfonate (Kayexalate Susp) 15 gm PO DAILY [facility] Stop: 02/13/18 10:01 Last Admin: 02/10/18 10:15 Dose: 15 gm Physical Exam - Head Exam Head Exam: ATRAUMATIC - Eye Exam Eye Exam: Normal appearance - ENT Exam ENT Exam: Mucous Membranes Dry - Respiratory Exam Respiratory Exam: NORMAL BREATHING PATTERN - Cardiovascular Exam Cardiovascular Exam: +S1, +S2 - GI/Abdominal Exam GI & Abdominal Exam: Normal Bowel Sounds - Extremities Exam Extremities exam: Positive for: normal inspection - Neurological Exam Neurological exam: Oriented x3 - Psychiatric Exam Psychiatric exam: Normal Affect, Normal Mood - Skin Skin Exam: Warm Results - Vital Signs Recent Vital Signs: Last Vital Signs Temp 98.6 F 02/10/18 15:56 Pulse 93 H 02/10/18 15:56 Resp 20 02/10/18 15:56 BP 166/91 H 02/10/18 15:56 Pulse Ox 98 02/10/18 15:56 - Labs Result Diagrams: 02/10/18 07:20 02/10/18 07:20 Labs: Laboratory Results - last 24 hr 02/09/18 02/09/18 02/09/18 17:04 17:04 20:05 WBC RBC Hgb Hct MCV MCH MCHC RDW Plt Count MPV Neut % (Auto) Lymph % (Auto) Gilchrist % (Auto) Eos % (Auto) Baso % (Auto) Neut # (Auto) Lymph # (Auto) Gilchrist # (Auto) Eos # (Auto) Baso # (Auto) PT 12.3 H INR 1.1 APTT 33 Sodium Potassium Chloride Carbon Dioxide Anion Gap BUN Creatinine Est GFR ( Amer) Est GFR (Non-Af Amer) POC Glucose (mg/dL) Random Glucose Calcium Phosphorus Magnesium Total Bilirubin AST ALT Alkaline Phosphatase Total Protein Albumin Globulin Albumin/Globulin Ratio Vitamin B12 298 25-OH Vitamin D Total Folate 9.4 Urine HCG, Qual Blood Type A POSITIVE Antibody Screen Negative 02/09/18 02/10/18 02/10/18 21:20 06:57 07:00 WBC RBC Hgb Hct MCV MCH MCHC RDW Plt Count MPV Neut % (Auto) Lymph % (Auto) Gilchrist % (Auto) Eos % (Auto) Baso % (Auto) Neut # (Auto) Lymph # (Auto) Gilchrist # (Auto) Eos # (Auto) Baso # (Auto) PT INR APTT Sodium Potassium Chloride Carbon Dioxide Anion Gap BUN Creatinine Est GFR ( Amer) Est GFR (Non-Af Amer) POC Glucose (mg/dL) 203 H 185 H Random Glucose Calcium Phosphorus Magnesium Total Bilirubin AST ALT Alkaline Phosphatase Total Protein Albumin Globulin Albumin/Globulin Ratio Vitamin B12 25-OH Vitamin D Total Folate Urine HCG, Qual Negative Blood Type Antibody Screen 02/10/18 02/10/18 02/10/18 07:20 07:20 07:20 WBC 5.6 RBC 3.38 L Hgb 8.1 L Hct 25.4 L MCV 75.0 L MCH 24.0 L MCHC 32.0 L RDW 14.3 Plt Count 258 MPV 8.1 Neut % (Auto) 60.9 Lymph % (Auto) 26.6 Gilchrist % (Auto) 7.4 Eos % (Auto) 4.4 H Baso % (Auto) 0.7 Neut # (Auto) 3.4 Lymph # (Auto) 1.5 Gilchrist # (Auto) 0.4 Eos # (Auto) 0.2 Baso # (Auto) 0.0 PT INR APTT Sodium 140 Potassium 5.3 H Chloride 110 H Carbon Dioxide 20 L Anion Gap 15 BUN 35 H Creatinine 5.7 H Est GFR ( Amer) 10 Est GFR (Non-Af Amer) 8 POC Glucose (mg/dL) Random Glucose 192 H Calcium 8.9 Phosphorus 4.7 H Magnesium 1.6 Total Bilirubin 0.4 AST 12 L D ALT 6 L D Alkaline Phosphatase 97 Total Protein 7.7 Albumin 3.4 L Globulin 4.3 H Albumin/Globulin Ratio 0.8 L Vitamin B12 25-OH Vitamin D Total < 12.8 L Folate Urine HCG, Qual Blood Type Antibody Screen 02/10/18 02/10/18 11:21 15:34 WBC RBC Hgb Hct MCV MCH MCHC RDW Plt Count MPV Neut % (Auto) Lymph % (Auto) Gilchrist % (Auto) Eos % (Auto) Baso % (Auto) Neut # (Auto) Lymph # (Auto) Gilchrist # (Auto) Eos # (Auto) Baso # (Auto) PT INR APTT Sodium Potassium Chloride Carbon Dioxide Anion Gap BUN Creatinine Est GFR ( Amer) Est GFR (Non-Af Amer) POC Glucose (mg/dL) 168 H 204 H Random Glucose Calcium Phosphorus Magnesium Total Bilirubin AST ALT Alkaline Phosphatase Total Protein Albumin Globulin Albumin/Globulin Ratio Vitamin B12 25-OH Vitamin D Total Folate Urine HCG, Qual Blood Type Antibody Screen Assessment & Plan (1) Anemia Assessment and Plan: anemia of CKD - consider Procrit normal iron/b12/folate stores will check hgb electropheresis to rule out hemoglobinopathy trait FOBT Status: Acute (2) Retroperitoneal lymphadenopathy Assessment and Plan: ? recurrence of cervical cancer will add CA 125 recommend checking with IR if LN's accessible by percutaneous biopsy Status: Acute (3) Liver mass Assessment and Plan: prior MRI in 2013 suggested liver mass was hemangioma recommend clarifying with radiology if this is concerning for metastasis vs hemangioma if concerning for malignancy; would recommend percutaeous biopsy by IR will check tumor markers Status: Acute (4) History of cervical cancer Assessment and Plan: s/p chemoradiation in 2013 rule out recurrence f/u tumor markers and IR for percutaneous biopsy Thank you for this interesting consult. Status: Acute
--- NOTE | 2018-02-10 20:04 | CP.PCM.PN ---
Subjective - Date & Time of Evaluation Date of Evaluation: 02/10/18 Time of Evaluation: 19:00 - Subjective Subjective: No complaints, daughters at bedside. Objective - Vital Signs/Intake and Output Vital Signs (last 24 hours): Temp Pulse Resp BP Pulse Ox 98.6 F 93 H 20 166/91 H 98 02/10/18 15:56 02/10/18 15:56 02/10/18 15:56 02/10/18 15:56 02/10/18 15:56 Intake and Output: 02/10/18 02/11/18 18:59 06:59 Intake Total 1000 Balance 1000 - Medications Medications: Current Medications Amlodipine Besylate (Norvasc) 10 mg PO DAILY [facility] Ergocalciferol (Drisdol 50,000 Intl Units Cap) 1 cap PO Q7D [facility] Last Admin: 02/10/18 10:14 Dose: 1 cap Ceftriaxone Sodium 1 gm/ (Sodium Chloride) 100 mls @ 100 mls/hr IVPB DAILY [facility]; Protocol Last Admin: 02/10/18 10:21 Dose: 100 mls/hr Sodium Chloride (Sodium Chloride 0.9%) 1,000 mls @ 75 mls/hr IV .[id number] [facility] Last Admin: 02/10/18 04:30 Dose: 75 mls/hr Influenza Virus Vaccine (Fluzone Quad [id number]) 60 mcg IM .ONCE ONE Stop: 02/11/18 10:01 Insulin Human Regular (Novolin R) 0 unit SC ACHS [facility]; Protocol Last Admin: 02/10/18 17:24 Dose: 2 units Ondansetron HCl (Zofran Inj) 4 mg IVP Q6 PRN PRN Reason: Nausea/Vomiting Last Admin: 02/10/18 10:21 Dose: 4 mg Oxycodone/Acetaminophen (Percocet 5/325 Mg Tab) 1 tab PO Q4H PRN PRN Reason: Pain, Mild (1-3) Stop: 02/12/18 02:34 Last Admin: 02/09/18 09:27 Dose: 1 tab Sodium Bicarbonate (Sodium Bicarbonate Tab) 1,300 mg PO TID [facility] Last Admin: 02/10/18 17:24 Dose: 1,300 mg Sodium Polystyrene Sulfonate (Kayexalate Susp) 15 gm PO DAILY [facility] Stop: 02/13/18 10:01 Last Admin: 02/10/18 10:15 Dose: 15 gm - Labs Labs: 02/10/18 07:20 02/10/18 07:20 PT 12.3 SECONDS (9.7-12.2) H 02/09/18 20:05 INR 1.1 02/09/18 20:05 APTT 33 SECONDS (21-34) 02/09/18 20:05 - Head Exam Head Exam: ATRAUMATIC - Eye Exam Eye Exam: Normal appearance - ENT Exam ENT Exam: Mucous Membranes Dry - Respiratory Exam Respiratory Exam: NORMAL BREATHING PATTERN - Cardiovascular Exam Cardiovascular Exam: +S1, +S2 - GI/Abdominal Exam GI & Abdominal Exam: Normal Bowel Sounds Assessment and Plan (1) Anemia Assessment & Plan: anemia of CKD - consider Procrit normal iron/b12/folate stores f/u hgb electropheresis to rule out hemoglobinopathy trait FOBT Status: Acute (2) Retroperitoneal lymphadenopathy Assessment & Plan: ? recurrence of cervical cancer will add CA 125 recommend checking with IR if LN's accessible for percutaneous biopsy Status: Acute (3) Liver mass Assessment & Plan: prior MRI in 2013 suggested liver mass was hemangioma recommend clarifying with radiology if this is concerning for metastasis vs hemangioma if concerning for malignancy; would recommend percutaneous biopsy by IR f/u tumor markers Status: Acute (4) History of cervical cancer Assessment & Plan: s/p chemoradiation in 2013 rule out recurrence f/u tumor markers and IR for percutaneous biopsy Status: Acute
[2018-02-11 07:24] LABS: BASO % 0.6 % (0.0-2.0); EOS # 0.3 K/uL (0.0-0.7); EOS % 4.7 % (0.0-4.0); HEMOGLOBIN 7.8 g/dL (11.0-16.0); LYMPH % 29.9 % (20.0-40.0); MEAN CELL VOLUME 74.2 fL (81.0-99.0); MEAN CORPUSCULAR HEMOGLOBIN 24.3 pg (27.0-31.0); MEAN CORPUSCULAR HGB CONC 32.7 g/dL (33.0-37.0); MEAN PLATELET VOLUME 7.8 fL (7.2-11.7); MONO # 0.4 K/uL (0.0-0.8); MONO % 6.3 % (0.0-10.0); NEUT # 3.9 K/uL (1.8-7.0); NEUT % 58.5 % (50.0-75.0); RBC 3.23 Mil/uL (3.80-5.20); RED CELL DISTRIBUTION WIDTH 14.6 % (11.5-14.5); WHITE BLOOD COUNT 6.7 K/uL (4.8-10.8)
[2018-02-11 07:50] LABS: ALB/GLOB RATIO 0.8 (1.0-2.1); ALBUMIN 3.4 g/dL (3.5-5.0); CALCIUM 8.9 mg/dl (8.6-10.4)
[2018-02-11] MEDS: (Novolin R) Insulin Human Regular 100 units/ml vial SC SCH ×4 (08:38→21:32)
[2018-02-11] MEDS: Magnesium Sulfate 1 gm in D5W 1 GM/100 ML BAG IVPB SCH ×2 (08:39→08:59)
[2018-02-11] MEDS: Sodium Chloride 0.9% 1,000 ML IV SCH (08:41)
--- NOTE | 2018-02-11 09:59 | CP.PCM.PN ---
Subjective - Date & Time of Evaluation Date of Evaluation: 02/11/18 Time of Evaluation: 09:57 - Subjective Subjective: Nephrology Consultation Note: Assessment: stable Acute Kidney Injury (N17.9) likely due to obstruction uropathy/hy droureteronephrosis Hyperkalemia, NAGMA Diabetic chronic Kidney Disease (E11.22) Hypertensive Chronic Kidney Disease (I12.9) Chronic Kidney Disease (N18.3) Stage 3 with 1 gram proteinuria (R80.9) likely due to KIRSTIE, obstruction Anemia (D64.9), hx of cervical SCC Hypomag Plan No acute need for renal replacement therapy at this time but may need soon and will need close follow up. anticipate renal recovery as urinary obstruction is relieved. pt will need ureteral stent change and or percutaneous nephrostomy tube placement. d/w IR and urology. stable Cr and K today. hence will await to change stent monday Hypertension control with meds as ordered. Maintain hemodynamics stable. Avoid hypotension. Patient not on ACEI/ARB due to recent KIRSTIE Monitor Input/Output, daily weights and renal function with basic metabolic panel continue with IVF as normal saline. added sodium bicarb ? recurrence of her malignancy. consulted heme/onc. may need [employer] COMM[employer]ICATION[employer]INE[employer] input PRBC as needed supplemented IV mag Check urine analysis, spot protein/creatinine, albumin/creatinine ratio Check HIV/Hep B and Hep C serology Anemia work up with TSAT/Ferritin/Vitamin B12/folate Check for 25-OH vitamin D, iPTH, phosphorus level. Dose meds/antibiotics for reduced GFR. Avoid fleets enema/magnesium based lax atives. Avoid nephrotoxins/NSAIDs/ iodinated contrast (unless needed emergently) Glycemic control Further work up/management as per primary team Thanks for allowing me to participate in care of your patient. Will follow patient with you. Please call if any Qs. had d/w team Dr Trevon Maria Office: [phone] Chief Complaint; nausea/vomitting Reason for consult: Acute Kidney Injury HPI: Pt is a 47 F with hx of diabetes Mellitus ( years), hypertension (years) CKD 3 with baseline cr 1.5 with AKIs in past, b/l hydroureteronephrosis s/p stents (Dr Mac), hx of cervical SCC presented with complaints of nasuea vomitting and upset stomach for last few days. renal consult for KIRSTIE. pt says she is making urine normally Denies OTC/herbal meds or NSAIDs except alleve for 2 days No recent iodinated contrast exposure. No obvious episodes of low BP. pt says last time stents were changed 1 year ago ROS: Cardiovascular: No chest pain. Pulmonary: No shortness of breath Gastrointestinal: denies abdominal pain c/o nausea. c/o vomiting. Genitourinary: mild pain while urinating. Denies blood in urine. All other negative except as mentioned in HPI Physical Examination: General Appearance: Comfortable, in no acute respiratory distress, co-operative . Vitals reviewed and noted as below Head; Atraumatic, normocephalic ENT: no ulcers no thrush. Tongue is midline. Oropharynx: no rash or ulcers. EYES: Pupils are equal, round and reactive to light accommodation. Eye muscles and extraocular movement intact. Sclera is anicteric. Neck; supple no lymphadenopathy, no thyromegaly or bruit Lungs: Normal respiratory rate/effort. Breath sounds bilateral equal and clear Heart: Normal rate. s1s2 normal. No rub or gallop. Extremities: no edema. No varicose veins Neurological: Patient is alert, awake and oriented to person, place and time. No focal deficit. Strength bilateral appropriate and equal Skin: Warm and dry. Normal turgor. No rash. Palpitation: Normal elasticity for age Abdomen: Abdomen is soft/distended. Bowel sounds +. There is no abdominal tenderness, no guarding/rigidity no organomegaly Psych: limited insight and normal affect/mood MSK: no joint tenderness or swelling. Digits and nails normal, no deformity : kidney or bladder not palpable Labs/imaging reviewed. Past medical history, past surgical history, family history, social history, allergy reviewed and noted as below Family hx: no hx of CKD. Rest non-contributory imaging: b/l severe hydronephrosis. b/l ureteral stents. has retroperitoneal lymphadenpathy and ? necrotic mass above liver 6 cm size Objective - Vital Signs/Intake and Output Vital Signs (last 24 hours): Temp Pulse Resp BP Pulse Ox 98.5 F 97 H 20 151/83 H 96 02/11/18 07:00 02/11/18 07:00 02/11/18 07:00 02/11/18 07:00 02/11/18 07:00 Intake and Output: 02/11/18 02/11/18 06:59 18:59 Intake Total 340 Output Total 1000 Balance -660 - Medications Medications: Current Medications Amlodipine Besylate (Norvasc) 10 mg PO DAILY [facility] Ergocalciferol (Drisdol 50,000 Intl Units Cap) 1 cap PO Q7D [facility] Last Admin: 02/10/18 10:14 Dose: 1 cap Ceftriaxone Sodium 1 gm/ (Sodium Chloride) 100 mls @ 100 mls/hr IVPB DAILY [facility]; Protocol Last Admin: 02/10/18 10:21 Dose: 100 mls/hr Sodium Chloride (Sodium Chloride 0.9%) 1,000 mls @ 75 mls/hr IV .[id number] [facility] Last Admin: 02/11/18 08:41 Dose: 75 mls/hr Influenza Virus Vaccine (Fluzone Quad 2821-4300) 60 mcg IM .ONCE ONE Stop: 02/11/18 10:01 Last Admin: 02/11/18 09:22 Dose: Not Given Insulin Human Regular (Novolin R) 0 unit SC ACHS [facility]; Protocol Last Admin: 02/11/18 08:38 Dose: 2 units Ondansetron HCl (Zofran Inj) 4 mg IVP Q6 PRN PRN Reason: Nausea/Vomiting Last Admin: 02/11/18 08:58 Dose: 4 mg Oxycodone/Acetaminophen (Percocet 5/325 Mg Tab) 1 tab PO Q4H PRN PRN Reason: Pain, Mild (1-3) Stop: 02/12/18 02:34 Last Admin: 02/09/18 09:27 Dose: 1 tab Sodium Bicarbonate (Sodium Bicarbonate Tab) 1,300 mg PO TID [facility] Last Admin: 02/10/18 17:24 Dose: 1,300 mg Sodium Polystyrene Sulfonate (Kayexalate Susp) 15 gm PO DAILY [facility] Stop: 02/13/18 10:01 Last Admin: 02/10/18 10:15 Dose: 15 gm - Labs Labs: 02/11/18 07:12 02/11/18 07:12 PT 12.3 SECONDS (9.7-12.2) H 02/09/18 20:05 INR 1.1 02/09/18 20:05 APTT 33 SECONDS (21-34) 02/09/18 20:05
[2018-02-11] MEDS ORDERED: Influenza Vaccine 60 MCG/0.5 ML SYR (3 yr & up) IM ONE (10:00)
[2018-02-11] MEDS: cefTRIAXone 1 GM in Sodium Chloride 0.9% 100 ML IVPB SCH (10:15)
[2018-02-11] MEDS: Sod Polystyrene Sulf 15 gm/60 ml Susp PO SCH (10:15)
[2018-02-11] MEDS: Oxycodone/Acetaminophen 5/325 mg Tab PO PRN (14:48)
--- NOTE | 2018-02-11 19:29 | CP.PCM.PN ---
Subjective - Date & Time of Evaluation Date of Evaluation: 02/11/18 Time of Evaluation: 18:00 - Subjective Subjective: No complaints. Objective - Vital Signs/Intake and Output Vital Signs (last 24 hours): Temp Pulse Resp BP Pulse Ox 98.9 F 100 H 20 133/79 96 02/11/18 17:12 02/11/18 17:12 02/11/18 17:12 02/11/18 17:12 02/11/18 17:12 Intake and Output: 02/11/18 02/12/18 18:59 06:59 Intake Total 1230 Balance 1230 - Medications Medications: Current Medications Amlodipine Besylate (Norvasc) 10 mg PO DAILY [facility] Last Admin: 02/11/18 10:23 Dose: 10 mg Ergocalciferol (Drisdol 50,000 Intl Units Cap) 1 cap PO Q7D [facility] Last Admin: 02/10/18 10:14 Dose: 1 cap Ceftriaxone Sodium 1 gm/ (Sodium Chloride) 100 mls @ 100 mls/hr IVPB DAILY [facility]; Protocol Last Admin: 02/11/18 10:15 Dose: 100 mls/hr Sodium Chloride (Sodium Chloride 0.9%) 1,000 mls @ 75 mls/hr IV .[id number] [facility] Last Admin: 02/11/18 08:41 Dose: 75 mls/hr Insulin Human Regular (Novolin R) 0 unit SC ACHS [facility]; Protocol Last Admin: 02/11/18 17:06 Dose: 1 units Ondansetron HCl (Zofran Inj) 4 mg IVP Q6 PRN PRN Reason: Nausea/Vomiting Last Admin: 02/11/18 08:58 Dose: 4 mg Oxycodone/Acetaminophen (Percocet 5/325 Mg Tab) 1 tab PO Q4H PRN PRN Reason: Pain, Mild (1-3) Stop: 02/12/18 02:34 Last Admin: 02/11/18 14:48 Dose: 1 tab Sodium Bicarbonate (Sodium Bicarbonate Tab) 1,300 mg PO TID [facility] Last Admin: 02/11/18 18:06 Dose: 1,300 mg Sodium Polystyrene Sulfonate (Kayexalate Susp) 15 gm PO DAILY [facility] Stop: 02/13/18 10:01 Last Admin: 02/11/18 10:15 Dose: Not Given - Labs Labs: 02/11/18 07:12 02/11/18 07:12 PT 12.3 SECONDS (9.7-12.2) H 02/09/18 20:05 INR 1.1 02/09/18 20:05 APTT 33 SECONDS (21-34) 02/09/18 20:05 - Head Exam Head Exam: ATRAUMATIC - Eye Exam Eye Exam: Normal appearance - ENT Exam ENT Exam: Mucous Membranes Dry - Respiratory Exam Respiratory Exam: NORMAL BREATHING PATTERN - Cardiovascular Exam Cardiovascular Exam: +S1, +S2 - GI/Abdominal Exam GI & Abdominal Exam: Normal Bowel Sounds Assessment and Plan (1) Anemia Assessment & Plan: anemia of CKD - consider Procrit normal iron/b12/folate stores f/u hgb electropheresis to rule out hemoglobinopathy trait FOBT Status: Acute (2) Retroperitoneal lymphadenopathy Assessment & Plan: ? 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
[2018-02-12] MEDS: Sodium Chloride 0.9% 1,000 ML IV SCH (02:27)
[2018-02-12 06:44] LABS: BASO % 0.6 % (0.0-2.0); EOS # 0.2 K/uL (0.0-0.7); EOS % 3.1 % (0.0-4.0); HEMOGLOBIN 8.1 g/dL (11.0-16.0); LYMPH # 1.9 K/uL (1.0-4.3); MEAN CELL VOLUME 74.5 fL (81.0-99.0); MEAN CORPUSCULAR HEMOGLOBIN 23.4 pg (27.0-31.0); MEAN CORPUSCULAR HGB CONC 31.4 g/dL (33.0-37.0); MEAN PLATELET VOLUME 7.9 fL (7.2-11.7); MONO # 0.4 K/uL (0.0-0.8); MONO % 5.7 % (0.0-10.0); NEUT # 4.4 K/uL (1.8-7.0); NEUT % 63.6 % (50.0-75.0); RBC 3.47 Mil/uL (3.80-5.20); RED CELL DISTRIBUTION WIDTH 14.7 % (11.5-14.5); WHITE BLOOD COUNT 6.9 K/uL (4.8-10.8)
[2018-02-12 06:50] LABS: ALB/GLOB RATIO 0.8 (1.0-2.1); ALBUMIN 3.4 g/dL (3.5-5.0); ALT/SGPT < 6 U/L (9-52); AST/SGOT 16 U/L (14-36); BLOOD UREA NITROGEN 20 mg/dL (7-17); CALCIUM 8.9 mg/dl (8.6-10.4); GFR NON-AFRICAN AMERICAN 11
[2018-02-12 07:53] LABS: MCV 75.7 fL (80.0-100.0)
--- NOTE | 2018-02-12 08:01 | HP ---
HISTORY OF PRESENT ILLNESS: Marybeth Salgado is a 47-year-old female with chief complaint of pain in flank, weakness, fever. The patient is on supportive care and stents, evidence of masses in cervix and liver. PHYSICAL EXAMINATION: GENERAL: The patient is awake, alert, and oriented. VITAL SIGNS: Temperature 98, pulse 97. HEENT: Within normal limits. NECK: Supple. CHEST: Symmetrical. HEART: Regular. ABDOMEN: Soft. EXTREMITIES: No edema. LABORATORY DATA: Significant BUN and creatinine. ASSESSMENT AND PLAN: Was found to have cervical cancer, back obstruction. The patient needs bedrest, supportive care. Kym Mckeon MD
[2018-02-12] MEDS: (Novolin R) Insulin Human Regular 100 units/ml vial SC SCH ×4 (08:25→22:48)
[2018-02-12] MEDS: cefTRIAXone 1 GM in Sodium Chloride 0.9% 100 ML IVPB SCH (09:31)
[2018-02-12] MEDS: Sod Polystyrene Sulf 15 gm/60 ml Susp PO SCH (09:38)
--- NOTE | 2018-02-12 13:28 | CP.PCM.PN ---
Subjective - Date & Time of Evaluation Date of Evaluation: 02/12/18 Time of Evaluation: 07:50 - Subjective Subjective: Resident Progress Note for Dr. Mckeon Patient seen and examined at bedside. No acute events reported overnight. Patient still complains of feeling nauseous and lower abdominal discomfort. She is aware of her NPO status for urological procedure later today. Patient denies fever, chills, headache, shortness of breath, or chest pain. Objective - Vital Signs/Intake and Output Vital Signs (last 24 hours): Temp Pulse Resp BP Pulse Ox 98.7 F 91 H 20 151/71 H 96 02/12/18 07:51 02/12/18 07:51 02/12/18 07:51 02/12/18 07:51 02/12/18 07:51 Intake and Output: 02/12/18 02/12/18 06:59 18:59 Intake Total 1150 600 Balance 1150 600 - Medications Medications: Current Medications Amlodipine Besylate (Norvasc) 10 mg PO DAILY [facility] Last Admin: 02/12/18 09:37 Dose: 10 mg Ergocalciferol (Drisdol 50,000 Intl Units Cap) 1 cap PO Q7D [facility] Last Admin: 02/10/18 10:14 Dose: 1 cap Ceftriaxone Sodium 1 gm/ (Sodium Chloride) 100 mls @ 100 mls/hr IVPB DAILY [facility]; Protocol Last Admin: 02/12/18 09:31 Dose: 100 mls/hr Sodium Chloride (Sodium Chloride 0.9%) 1,000 mls @ 75 mls/hr IV .[id number] [facility] Last Admin: 02/12/18 02:27 Dose: 75 mls/hr Insulin Human Regular (Novolin R) 0 unit SC ACHS [facility]; Protocol Last Admin: 02/12/18 11:23 Dose: Not Given Ondansetron HCl (Zofran Inj) 4 mg IVP Q6 PRN PRN Reason: Nausea/Vomiting Last Admin: 02/11/18 08:58 Dose: 4 mg Sodium Bicarbonate (Sodium Bicarbonate Tab) 1,300 mg PO TID [facility] Last Admin: 02/12/18 09:38 Dose: 1,300 mg - Labs Labs: 02/12/18 06:13 02/12/18 06:13 PT 12.3 SECONDS (9.7-12.2) H 02/09/18 20:05 INR 1.1 02/09/18 20:05 APTT 33 SECONDS (21-34) 02/09/18 20:05 - Additional Findings Additional findings: - Constitutional Appears: No Acute Distress - Head Exam Head Exam: ATRAUMATIC, NORMAL INSPECTION - Eye Exam Eye Exam: EOMI, Normal appearance - ENT Exam ENT Exam: Mucous Membranes Moist - Respiratory Exam Respiratory Exam: Clear to Ausculation Bilateral, NORMAL BREATHING PATTERN. absent: Rhonchi, Wheezes - Cardiovascular Exam Cardiovascular Exam: REGULAR RHYTHM, +S1, +S2. absent: Tachycardia, Irregular Rhythm - GI/Abdominal Exam GI & Abdominal Exam: Soft, Normal Bowel Sounds. absent: Distended, Firm, Guarding, Rigid, Tenderness - Extremities Exam Extremities Exam: Normal Inspection. absent: Calf Tenderness, Pedal Edema - Back Exam Back Exam: CVA tenderness (L), CVA tenderness (R) Additional comments: Right CVA> Left CVA Assessment and Plan - Assessment and Plan (Free Text) Assessment: Flank pain - Afebrile, no leukocytosis - CT abdomen on admission showed Severe bilateral hydronephrosis and hydroureter. Bilateral ureteral stents. Large partially necrotic mass in the right lobe of the liver slightly decreased in size from examination of 05/30/2017. No biliary obstruction. Mild retroperitoneal lymphadenopathy, uncertain significance. - Rocephine 1gm IV daily - NS @75mls/hr - Ureteral stent placement later today with urology Dr. Andrew hampton Acute on chronic kidney failure - Secondary to uropathy obstruction/hydroureternephrosis - Follow nephrology recommendations - Avoid nephrotoxic agents - NS @ 75cc/hr due to HTN Sodium Bicarbonate 1,300mg PO TID - Ureteral stent placement later today with urology Dr. Andrew hampton Hypertension - Norvasc 5mg PO daily - Decreased IVF to 75mls/hr Anemia of renal disease - H/H improvin.8/23.9 --> 8.1/25.9 - Given ferrlecit 125mg IV once - Continue to monitor labs - Type and screen ordered Hyperkalemia - Likely secondary to acute renal failure - Stable 4.0 today - Kayexalate 30gm once - Kayexalate 15gm PO daily ( 3 days) - Monitor with am labs Prophylactic measure - SCDs, chemical anti-coagulate contraindicated due to acute anemia - Not indicated at this time Case discussed with attending physician Dr. Mckeon
--- NOTE | 2018-02-12 15:11 | CP.PCM.PN ---
Subjective - Date & Time of Evaluation Date of Evaluation: 02/12/18 Time of Evaluation: 15:10 - Subjective Subjective: Nephrology Consultation Note: Assessment: stable Acute Kidney Injury (N17.9) likely due to obstruction uropathy/hy droureteronephrosis Hyperkalemia, NAGMA Diabetic chronic Kidney Disease (E11.22) Hypertensive Chronic Kidney Disease (I12.9) Chronic Kidney Disease (N18.3) Stage 3 with 1 gram proteinuria (R80.9) likely due to KIRSTIE, obstruction Anemia (D64.9), hx of cervical SCC Hypomag Plan No acute need for renal replacement therapy at this time but may need soon and will need close follow up. anticipate renal recovery as urinary obstruction is relieved. pt will need ureteral stent change and or percutaneous nephrostomy tube placement. d/w IR and urology. planned for exchange stent today Hypertension control with meds as ordered. Maintain hemodynamics stable. Avoid hypotension. Patient not on ACEI/ARB due to recent KIRSTIE Monitor Input/Output, daily weights and renal function with basic metabolic panel continue with IVF as normal saline. added sodium bicarb ? recurrence of her malignancy. consulted heme/onc. may need ELECT[employer]ER input PRBC as needed supplemented IV mag d/c kayexylate Check urine analysis, spot protein/creatinine, albumin/creatinine ratio Check HIV/Hep B and Hep C serology Anemia work up with TSAT/Ferritin/Vitamin B12/folate Check for 25-OH vitamin D, iPTH, phosphorus level. Dose meds/antibiotics for reduced GFR. Avoid fleets enema/magnesium based laxatives. Avoid nephrotoxins/NSAIDs/ iodinated contrast (unless needed emergently) Glycemic control Further work up/management as per primary team Thanks for allowing me to participate in care of your patient. Will follow patient with you. Please call if any Qs. had d/w team Dr Trevon Maria Office: [phone] Chief Complaint; nausea/vomitting Reason for consult: Acute Kidney Injury HPI: Pt is a 47 F with hx of diabetes Mellitus ( years), hypertension (years) CKD 3 with baseline cr 1.5 with AKIs in past, b/l hydroureteronephrosis s/p stents (Dr Mac), hx of cervical SCC presented with complaints of nasuea vomitting and upset stomach for last few days. renal consult for KIRSTIE. pt says she is making urine normally Denies OTC/herbal meds or NSAIDs except alleve for 2 days No recent iodinated contrast exposure. No obvious episodes of low BP. pt says last time stents were changed 1 year ago ROS: Cardiovascular: No chest pain. Pulmonary: No shortness of breath Gastrointestinal: denies abdominal pain c/o nausea. c/o vomiting. Genitourinary: mild pain while urinating. Denies blood in urine. All other negative except as mentioned in HPI Physical Examination: General Appearance: Comfortable, in no acute respiratory distress, co-operative . Vitals reviewed and noted as below Head; Atraumatic, normocephalic ENT: no ulcers no thrush. Tongue is midline. Oropharynx: no rash or ulcers. EYES: Pupils are equal, round and reactive to light accommodation. Eye muscles and extraocular movement intact. Sclera is anicteric. Neck; supple no lymphadenopathy, no thyromegaly or bruit Lungs: Normal respiratory rate/effort. Breath sounds bilateral equal and clear Heart: Normal rate. s1s2 normal. No rub or gallop. Extremities: no edema. No varicose veins Neurological: Patient is alert, awake and oriented to person, place and time. No focal deficit. Strength bilateral appropriate and equal Skin: Warm and dry. Normal turgor. No rash. Palpitation: Normal elasticity for age Abdomen: Abdomen is soft/distended. Bowel sounds +. There is no abdominal tenderness, no guarding/rigidity no organomegaly Psych: limited insight and normal affect/mood MSK: no joint tenderness or swelling. Digits and nails normal, no deformity : kidney or bladder not palpable Labs/imaging reviewed. Past medical history, past surgical history, family history, social history, allergy reviewed and noted as below Family hx: no hx of CKD. Rest non-contributory imaging: b/l severe hydronephrosis. b/l ureteral stents. has retroperitoneal lymphadenpathy and ? necrotic mass above liver 6 cm size Objective - Vital Signs/Intake and Output Vital Signs (last 24 hours): Temp Pulse Resp BP Pulse Ox 98.7 F 91 H 20 151/71 H 96 02/12/18 07:51 02/12/18 07:51 02/12/18 07:51 02/12/18 07:51 02/12/18 07:51 Intake and Output: 02/12/18 02/12/18 06:59 18:59 Intake Total 1150 600 Balance 1150 600 - Medications Medications: Current Medications Amlodipine Besylate (Norvasc) 10 mg PO DAILY [facility] Last Admin: 02/12/18 09:37 Dose: 10 mg Ergocalciferol (Drisdol 50,000 Intl Units Cap) 1 cap PO Q7D [facility] Last Admin: 02/10/18 10:14 Dose: 1 cap Ceftriaxone Sodium 1 gm/ (Sodium Chloride) 100 mls @ 100 mls/hr IVPB DAILY [facility]; Protocol Last Admin: 02/12/18 09:31 Dose: 100 mls/hr Sodium Chloride (Sodium Chloride 0.9%) 1,000 mls @ 75 mls/hr IV .[id number] [facility] Last Admin: 02/12/18 02:27 Dose: 75 mls/hr Insulin Human Regular (Novolin R) 0 unit SC ACHS [facility]; Protocol Last Admin: 02/12/18 11:23 Dose: Not Given Ondansetron HCl (Zofran Inj) 4 mg IVP Q6 PRN PRN Reason: Nausea/Vomiting Last Admin: 02/11/18 08:58 Dose: 4 mg Sodium Bicarbonate (Sodium Bicarbonate Tab) 1,300 mg PO TID [facility] Last Admin: 02/12/18 14:25 Dose: 1,300 mg - Labs Labs: 02/12/18 06:13 02/12/18 06:13 PT 12.3 SECONDS (9.7-12.2) H 02/09/18 20:05 INR 1.1 02/09/18 20:05 APTT 33 SECONDS (21-34) 02/09/18 20:05
[2018-02-12] MEDS ORDERED: Iohexol 240 (50 ml) ONE ×2 (16:04→16:54)
[2018-02-12] MEDS ORDERED: Midazolam 2 MG/2 ML VIAL ONE (16:19)
[2018-02-12] MEDS ORDERED: Propofol 10 mg/ml Inj (20 ML) ONE (16:21)
[2018-02-12] MEDS: HYDROmorphone 0.5 mg/0.5 ml ISec IVP PRN ×2 (17:25→17:46)
--- NOTE | 2018-02-12 18:22 | RAD ---
Date of service: 02/12/2018 PROCEDURE: Intraoperative Fluoroscopy. HISTORY: B/L HYDRONEPHROSIS FINDINGS: Fluoroscopic assistance was provided for bilateral stent placement.. Please refer to the operative report from DWAINE Sol DR, MD. Total fluoroscopic time (continuous mode) utilized during the procedure 65.5 seconds. Dose report: DLP 1.28 (mGy/m2)
--- NOTE | 2018-02-12 18:23 | RAD ---
Date of service: 02/12/2018 HISTORY: B/L HYDRONEPHROSIS COMPARISON: 12/07/2015 FINDINGS: BOWEL: Normal. No obstruction. No free air. BONES: Normal. OTHER FINDINGS: Bilateral double-J stent catheters identified in satisfactory position. IMPRESSION: Status post placement of double-J stent catheters bilaterally. These appear to be in satisfactory position.
[2018-02-12] MEDS: Oxycodone/Acetaminophen 5/325 mg Tab PO PRN (22:53)
--- NOTE | 2018-02-12 22:56 | CP.PCM.PN ---
Subjective - Date & Time of Evaluation Date of Evaluation: 02/12/18 Time of Evaluation: 18:00 - Subjective Subjective: No complaints. Objective - Vital Signs/Intake and Output Vital Signs (last 24 hours): Temp Pulse Resp BP Pulse Ox 97.4 F L 94 H 12 143/80 100 02/12/18 18:22 02/12/18 18:22 02/12/18 18:22 02/12/18 18:22 02/12/18 18:22 Intake and Output: 02/12/18 02/13/18 18:59 06:59 Intake Total 2175 Output Total 700 Balance 1475 - Medications Medications: Current Medications Amlodipine Besylate (Norvasc) 10 mg PO DAILY [facility] Last Admin: 02/12/18 09:37 Dose: 10 mg Ergocalciferol (Drisdol 50,000 Intl Units Cap) 1 cap PO Q7D [facility] Last Admin: 02/10/18 10:14 Dose: 1 cap Ceftriaxone Sodium 1 gm/ (Sodium Chloride) 100 mls @ 100 mls/hr IVPB DAILY [facility]; Protocol Last Admin: 02/12/18 09:31 Dose: 100 mls/hr Sodium Chloride (Sodium Chloride 0.9%) 1,000 mls @ 75 mls/hr IV .[id number] [facility] Last Admin: 02/12/18 02:27 Dose: 75 mls/hr Insulin Human Regular (Novolin R) 0 unit SC ACHS [facility]; Protocol Last Admin: 02/12/18 22:48 Dose: Not Given Ondansetron HCl (Zofran Inj) 4 mg IVP Q6 PRN PRN Reason: Nausea/Vomiting Last Admin: 02/11/18 08:58 Dose: 4 mg Oxycodone/Acetaminophen (Percocet 5/325 Mg Tab) 1 tab PO Q4H PRN PRN Reason: Pain, moderate (4-7) Stop: 02/15/18 21:29 Last Admin: 02/12/18 22:53 Dose: 1 tab Sodium Bicarbonate (Sodium Bicarbonate Tab) 1,300 mg PO TID [facility] Last Admin: 02/12/18 18:35 Dose: 1,300 mg - Labs Labs: 02/12/18 06:13 02/12/18 06:13 PT 12.3 SECONDS (9.7-12.2) H 02/09/18 20:05 INR 1.1 02/09/18 20:05 APTT 33 SECONDS (21-34) 02/09/18 20:05 - Head Exam Head Exam: ATRAUMATIC - Eye Exam Eye Exam: Normal appearance - ENT Exam ENT Exam: Mucous Membranes Dry - Respiratory Exam Respiratory Exam: NORMAL BREATHING PATTERN - Cardiovascular Exam Cardiovascular Exam: +S1, +S2 - GI/Abdominal Exam GI & Abdominal Exam: Normal Bowel Sounds Assessment and Plan (1) Anemia Assessment & Plan: anemia of CKD - consider Procrit normal iron/b12/folate stores f/u hgb electropheresis to rule out hemoglobinopathy trait FOBT Status: Acute (2) Retroperitoneal lymphadenopathy Assessment & Plan: ? recurrence of cervical cancer normal CA 125 recommend checking with IR if LN's accessible for percutaneous biopsy Status: Acute (3) Liver mass Assessment & Plan: prior MRI in 2014 suggested liver mass was hemangioma recommend clarifying with radiology if this is concerning for metastasis vs hemangioma if concerning for malignancy; would recommend percutaneous biopsy by IR elevated CA19-9 and CEA Status: Acute (4) History of cervical cancer Assessment & Plan: s/p chemoradiation in 2013 rule out recurrence normal CA125 Status: Acute
[2018-02-12 23:44] VITALS: RESP 20; TEMP 98.3
[2018-02-13] MEDS: Sodium Chloride 0.9% 1,000 ML IV SCH ×2 (05:42→05:43)
[2018-02-13 07:15] LABS: BASO % 0.4 % (0.0-2.0); EOS % 0.4 % (0.0-4.0); HEMOGLOBIN 8.7 g/dL (11.0-16.0); LYMPH # 1.7 K/uL (1.0-4.3); MEAN CELL VOLUME 74.5 fL (81.0-99.0); MEAN CORPUSCULAR HEMOGLOBIN 24.3 pg (27.0-31.0); MEAN CORPUSCULAR HGB CONC 32.6 g/dL (33.0-37.0); MEAN PLATELET VOLUME 8.1 fL (7.2-11.7); MONO # 0.4 K/uL (0.0-0.8); MONO % 4.7 % (0.0-10.0); NEUT # 6.1 K/uL (1.8-7.0); NEUT % 74.5 % (50.0-75.0); RBC 3.61 Mil/uL (3.80-5.20); RED CELL DISTRIBUTION WIDTH 14.5 % (11.5-14.5); WHITE BLOOD COUNT 8.3 K/uL (4.8-10.8)
[2018-02-13] MEDS: (Novolin R) Insulin Human Regular 100 units/ml vial SC SCH ×2 (07:39→11:34)
[2018-02-13 07:47] LABS: ALB/GLOB RATIO 0.8 (1.0-2.1); ALBUMIN 3.7 g/dL (3.5-5.0); CALCIUM 8.9 mg/dl (8.6-10.4)
--- NOTE | 2018-02-13 07:51 | CP.PCM.PN ---
Subjective - Date & Time of Evaluation Date of Evaluation: 02/13/18 Time of Evaluation: 08:00 - Subjective Subjective: Medicine Progress Note for Dr. Mckeon: Patient was seen and examined at bedside in the AM. Patient states she is feeling well. Patient denies chest pain, shortness of breath, fever, chills, nausea or vomiting. Objective - Vital Signs/Intake and Output Vital Signs (last 24 hours): Temp Pulse Resp BP Pulse Ox 98.3 F 108 H 20 132/79 96 02/12/18 23:39 02/12/18 23:39 02/12/18 23:39 02/12/18 23:39 02/12/18 23:39 Intake and Output: 02/13/18 02/13/18 06:59 18:59 Intake Total 1490 Output Total 2300 Balance -810 - Medications Medications: Current Medications Amlodipine Besylate (Norvasc) 10 mg PO DAILY [facility] Last Admin: 02/12/18 09:37 Dose: 10 mg Ergocalciferol (Drisdol 50,000 Intl Units Cap) 1 cap PO Q7D [facility] Last Admin: 02/10/18 10:14 Dose: 1 cap Ceftriaxone Sodium 1 gm/ (Sodium Chloride) 100 mls @ 100 mls/hr IVPB DAILY [facility]; Protocol Last Admin: 02/12/18 09:31 Dose: 100 mls/hr Sodium Chloride (Sodium Chloride 0.9%) 1,000 mls @ 75 mls/hr IV .[id number] [facility] Last Admin: 02/13/18 05:43 Dose: Not Given Insulin Human Regular (Novolin R) 0 unit SC ACHS [facility]; Protocol Last Admin: 02/13/18 07:39 Dose: 1 units Ondansetron HCl (Zofran Inj) 4 mg IVP Q6 PRN PRN Reason: Nausea/Vomiting Last Admin: 02/11/18 08:58 Dose: 4 mg Oxycodone/Acetaminophen (Percocet 5/325 Mg Tab) 1 tab PO Q4H PRN PRN Reason: Pain, moderate (4-7) Stop: 02/15/18 21:29 Last Admin: 02/12/18 22:53 Dose: 1 tab Sodium Bicarbonate (Sodium Bicarbonate Tab) 1,300 mg PO TID [facility] Last Admin: 02/12/18 18:35 Dose: 1,300 mg - Labs Labs: 02/13/18 06:59 02/13/18 06:59 PT 12.3 SECONDS (9.7-12.2) H 02/09/18 20:05 INR 1.1 02/09/18 20:05 APTT 33 SECONDS (21-34) 02/09/18 20:05 - Constitutional Appears: No Acute Distress - Head Exam Head Exam: ATRAUMATIC, NORMAL INSPECTION - Eye Exam Eye Exam: EOMI, Normal appearance - ENT Exam ENT Exam: Mucous Membranes Moist - Respiratory Exam Respiratory Exam: Clear to Ausculation Bilateral, NORMAL BREATHING PATTERN - Cardiovascular Exam Cardiovascular Exam: REGULAR RHYTHM, +S1, +S2 - GI/Abdominal Exam GI & Abdominal Exam: Soft, Normal Bowel Sounds. absent: Tenderness - Exam Additional comments: kyle in place - Extremities Exam Extremities Exam: Normal Inspection - Neurological Exam Neurological Exam: Alert, Awake, Oriented x3 - Psychiatric Exam Psychiatric exam: Normal Affect - Skin Skin Exam: Normal Color Assessment and Plan - Assessment and Plan (Free Text) Assessment: Flank pain -resolved - Afebrile, no leukocytosis - CT abdomen on admission showed Severe bilateral hydronephrosis and hydroureter. Bilateral ureteral stents. Large partially necrotic mass in the right lobe of the liver slightly decreased in size from examination of 05/30/2017. No biliary obstruction. Mild retroperitoneal lymphadenopathy, uncertain significance. - Rocephine 1gm IV daily - NS @75mls/hr - s/p Ureteral stent placement with urology Dr. Andrew mac 02/12/18 - Per Dr. Mac - discontinue kyle and patient to follow up 02/19/18 Acute on chronic kidney failure - Secondary to uropathy obstruction/hydroureternephrosis - Follow nephrology recommendations - Avoid nephrotoxic agents - NS @ 75cc/hr due to HTN Sodium Bicarbonate 1,300mg PO TID - Per Dr. Mac - discontinue kyle and patient to follow up 02/19/18 Hypertension - Norvasc 5mg PO daily - Decreased IVF to 75mls/hr Anemia of renal disease - H/H improvin.8/23.9 --> 8.1/25.9 - Given ferrlecit 125mg IV once - Continue to monitor labs - Type and screen ordered Hyperkalemia - Likely secondary to acute renal failure - Stable 4.0 today - Kayexalate 30gm once - Kayexalate 15gm PO daily ( 3 days) - Monitor with am labs Prophylactic measure - SCDs, chemical anti-coagulate contraindicated due to acute anemia - Not indicated at this time Disposition: Please note home medication change: Amlodipine 10mg one tablet daily. Please follow up with Dr. Mckeon within one week. Please follow up with Dr. Andrew Mac on Monday02/19/18 at 9AM. Thank you and take care. Tenga en cuenta el cambio de medicacin en el hogar: Amlodipina 10 mg jerzy tableta al da. Por favor kyleigh un seguimiento con el Dr. Mckeon dentro de jerzy semana. Por favor kyleigh el seguimiento con el Dr. Andrew Mac el 02/19/18 a las 9AM. Aurelia y ten cuidado. Case discussed with attending physician Dr. Mckeon
[2018-02-13 08:56] VITALS: BP 159/91; PULSE 98; O2SAT 95
[2018-02-13] MEDS: Oxycodone/Acetaminophen 5/325 mg Tab PO PRN (09:36)
[2018-02-13] MEDS: cefTRIAXone 1 GM in Sodium Chloride 0.9% 100 ML IVPB SCH (09:40)
[2018-02-13] MEDS: Magnesium Sulfate 1 gm in D5W 1 GM/100 ML BAG IVPB SCH ×2 (10:54→11:35)
--- NOTE | 2018-02-13 12:43 | CP.PCM.PN ---
Subjective - Date & Time of Evaluation Date of Evaluation: 02/13/18 Time of Evaluation: 12:41 - Subjective Subjective: Nephrology Consultation Note: Assessment: stable Acute Kidney Injury (N17.9) likely due to obstruction uropathy/hy droureteronephrosis s/p b/l ureteral stent exchange 02/12/18 Hyperkalemia, NAGMA Diabetic chronic Kidney Disease (E11.22) Hypertensive Chronic Kidney Disease (I12.9) Chronic Kidney Disease (N18.3) Stage 3 with 1 gram proteinuria (R80.9) likely due to KIRSTIE, obstruction Anemia (D64.9), hx of cervical SCC Hypomag Plan No acute need for renal replacement therapy at this time anticipate renal recovery as urinary obstruction is relieved. Hypertension control with meds as ordered. Maintain hemodynamics stable. Avoid hypotension. Patient not on ACEI/ARB due to recent KIRSTIE Monitor Input/Output, daily weights and renal function with basic metabolic panel continue with IVF as normal saline. lowered sodium bicarb ? recurrence of her malignancy. consulted heme/onc. may need P[employer]ER input PRBC as needed supplemented IV mag Check urine analysis, spot protein/creatinine, albumin/creatinine ratio Check HIV/Hep B and Hep C serology Anemia work up with TSAT/Ferritin/Vitamin B12/folate Check for 25-OH vitamin D, iPTH, phosphorus level. Dose meds/antibiotics for reduced GFR. Avoid fleets enema/magnesium based laxatives. Avoid nephrotoxins/NSAIDs/ iodinated contrast (unless needed emergen tly) Glycemic control Further work up/management as per primary team Thanks for allowing me to participate in care of your patient. Will follow patient with you. Please call if any Qs. had d/w team Dr Trevon Maria Office: [phone] Chief Complaint; nausea/vomitting Reason for consult: Acute Kidney Injury HPI: Pt is a 47 F with hx of diabetes Mellitus ( years), hypertension (years) CKD 3 with baseline cr 1.5 with AKIs in past, b/l hydroureteronephrosis s/p stents (Dr Mac), hx of cervical SCC presented with complaints of nasuea vomitting and upset stomach for last few days. renal consult for KIRSTIE. pt says she is making urine normally Denies OTC/herbal meds or NSAIDs except alleve for 2 days No recent iodinated contrast exposure. No obvious episodes of low BP. pt says last time stents were changed 1 year ago ROS: good UOP 3 L Cardiovascular: No chest pain. Pulmonary: No shortness of breath Gastrointestinal: denies abdominal pain no nausea. no vomiting. Genitourinary: mild pain while urinating. Denies blood in urine. All other negative except as mentioned in HPI Physical Examination: General Appearance: Comfortable, in no acute respiratory distress, co-operative . Vitals reviewed and noted as below Head; Atraumatic, normocephalic ENT: no ulcers no thrush. Tongue is midline. Oropharynx: no rash or ulcers. EYES: Pupils are equal, round and reactive to light accommodation. Eye muscles a nd extraocular movement intact. Sclera is anicteric. Neck; supple no lymphadenopathy, no thyromegaly or bruit Lungs: Normal respiratory rate/effort. Breath sounds bilateral equal and clear Heart: Normal rate. s1s2 normal. No rub or gallop. Extremities: no edema. No varicose veins Neurological: Patient is alert, awake and oriented to person, place and time. No focal deficit. Strength bilateral appropriate and equal Skin: Warm and dry. Normal turgor. No rash. Palpitation: Normal elasticity for age Abdomen: Abdomen is soft/distended. Bowel sounds +. There is no abdominal tenderness, no guarding/rigidity no organomegaly Psych: limited insight and normal affect/mood MSK: no joint tenderness or swelling. Digits and nails normal, no deformity : kidney or bladder not palpable Labs/imaging reviewed. Past medical history, past surgical history, family history, social history, allergy reviewed and noted as below Family hx: no hx of CKD. Rest non-contributory imaging: b/l severe hydronephrosis. b/l ureteral stents. has retroperitoneal lymphadenpathy and ? necrotic mass above liver 6 cm size Objective Objective - Vital Signs/Intake and Output Vital Signs (last 24 hours): Temp Pulse Resp BP Pulse Ox 98.3 F 98 H 20 159/91 H 95 02/13/18 08:55 02/13/18 08:55 02/13/18 08:55 02/13/18 08:55 02/13/18 08:55 Intake and Output: 02/13/18 02/13/18 06:59 18:59 Intake Total 1490 Output Total 2300 Balance -810 - Medications Medications: Current Medications Amlodipine Besylate (Norvasc) 10 mg PO DAILY [facility] Last Admin: 02/13/18 09:36 Dose: 10 mg Ergocalciferol (Drisdol 50,000 Intl Units Cap) 1 cap PO Q7D [facility] Last Admin: 02/10/18 10:14 Dose: 1 cap Ceftriaxone Sodium 1 gm/ (Sodium Chloride) 100 mls @ 100 mls/hr IVPB DAILY [facility]; Protocol Last Admin: 02/13/18 09:40 Dose: 100 mls/hr Sodium Chloride (Sodium Chloride 0.9%) 1,000 mls @ 75 mls/hr IV .[id number] [facility] Last Admin: 02/13/18 05:43 Dose: Not Given Insulin Human Regular (Novolin R) 0 unit SC ACHS [facility]; Protocol Last Admin: 02/13/18 11:34 Dose: 3 units Ondansetron HCl (Zofran Inj) 4 mg IVP Q6 PRN PRN Reason: Nausea/Vomiting Last Admin: 02/11/18 08:58 Dose: 4 mg Oxycodone/Acetaminophen (Percocet 5/325 Mg Tab) 1 tab PO Q4H PRN PRN Reason: Pain, moderate (4-7) Stop: 02/15/18 21:29 Last Admin: 02/13/18 09:36 Dose: 1 tab Sodium Bicarbonate (Sodium Bicarbonate Tab) 1,300 mg PO BID [facility] - Labs Labs: 02/13/18 06:59 02/13/18 06:59 PT 12.3 SECONDS (9.7-12.2) H 02/09/18 20:05 INR 1.1 02/09/18 20:05 APTT 33 SECONDS (21-34) 02/09/18 20:05
--- NOTE | 2018-02-13 19:34 | CARD ---
APPROVED REPORT Date of service: 02/12/2018 EKG Measurement Heart [id number] [place] 160P41 [id number] <Conclusion> Sinus tachycardia Otherwise normal ECG
--- NOTE | 2018-02-13 20:54 | CP.PCM.PN ---
Subjective - Date & Time of Evaluation Date of Evaluation: 02/13/18 Time of Evaluation: 12:00 - Subjective Subjective: No complaints. Objective - Vital Signs/Intake and Output Vital Signs (last 24 hours): Temp Pulse Resp BP Pulse Ox 98.3 F 98 H 20 159/91 H 95 02/13/18 08:55 02/13/18 08:55 02/13/18 08:55 02/13/18 08:55 02/13/18 08:55 Intake and Output: 02/13/18 02/14/18 18:59 06:59 Intake Total 1100 Output Total 1500 Balance -400 - Labs Labs: 02/13/18 06:59 02/13/18 06:59 PT 12.3 SECONDS (9.7-12.2) H 02/09/18 20:05 INR 1.1 02/09/18 20:05 APTT 33 SECONDS (21-34) 02/09/18 20:05 - Head Exam Head Exam: ATRAUMATIC - Eye Exam Eye Exam: Normal appearance - ENT Exam ENT Exam: Mucous Membranes Dry - Respiratory Exam Respiratory Exam: NORMAL BREATHING PATTERN - Cardiovascular Exam Cardiovascular Exam: +S1, +S2 - GI/Abdominal Exam GI & Abdominal Exam: Normal Bowel Sounds Assessment and Plan (1) Anemia Assessment & Plan: anemia of CKD - consider Procrit normal iron/b12/folate stores f/u hgb electropheresis to rule out hemoglobinopathy trait FOBT Status: Acute (2) Retroperitoneal lymphadenopathy Assessment & Plan: ? 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
--- NOTE | 2018-02-16 09:23 | DS ---
The patient is complaining of abdominal pain. Patient bed rest, supportive care, . Urology evaluation. Discharged. To be followed as outpatient. Kym Mckeon MD
--- NOTE | 2018-02-19 11:16 | OP ---
PROCEDURE DATE: 02/12/2018 PREOPERATIVE DIAGNOSIS: Hydronephrosis and hematuria. POSTOPERATIVE DIAGNOSIS: Hydronephrosis and hematuria. PROCEDURE: Cystoscopy, removal and insertion of double J stent bilaterally. COMPLICATIONS: There were no complications. The patient is here for the above procedure. FINDINGS: Nonspecific, just change of stent. INDICATIONS: See history and physical and consultation notes from the chart. DESCRIPTION OF PROCEDURE: After informed consent was obtained, the patient was placed on the table. Routine monitor utilized. Time-out was called to confirm the patient's positioning. The cystoscope was introduced via the urethra. The ureter orifice was identified. We opted to move the stent for the wide opening of incision for an open ended injected contents and left the double J stent in today. Removing . Overall, the patient tolerated the procedure well without complications. Cortes Mac MD
== END 2018-02-13 15:11 | disposition home health service (06) ==
LOC: C.ER 21:04 → C.3T 02-09 01:57
PROVIDERS: ADMIT Internal Medicine Pulmonary Disease; ATTEND Internal Medicine Pulmonary Disease
PROC: 0T788DZ Dilation of Bilateral Ureters with Intraluminal Device, Via Natural or Artificial Opening Endoscopic (ICD-10-PCS; 2018-02-12)
PROC: BT14ZZZ Fluoroscopy of Kidneys, Ureters and Bladder (ICD-10-PCS; 2018-02-12)
PROC: 0TP98DZ Removal of Intraluminal Device from Ureter, Via Natural or Artificial Opening Endoscopic (ICD-10-PCS; principal; 2018-02-12 14:30)
DX: N17.9 Acute kidney failure, unspecified (principal); E87.2 Acidosis; D63.1 Anemia in chronic kidney disease; N13.6 Pyonephrosis; N18.3 Chronic kidney disease, stage 3 (moderate); E87.5 Hyperkalemia; E11.22 Type 2 diabetes mellitus with diabetic chronic kidney disease; I12.9 Hypertensive chronic kidney disease with stage 1 through stage 4 chronic kidney disease, or unspecified chronic kidney disease; E78.00 Pure hypercholesterolemia, unspecified; E83.42 Hypomagnesemia; K29.70 Gastritis, unspecified, without bleeding; K57.90 Diverticulosis of intestine, part unspecified, without perforation or abscess without bleeding; Z79.4 Long term (current) use of insulin; Z86.711 Personal history of pulmonary embolism; Z91.19 Patient's noncompliance with other medical treatment and regimen; Z92.21 Personal history of antineoplastic chemotherapy; Z92.3 Personal history of irradiation; D18.09 Hemangioma of other sites; Z85.41 Personal history of malignant neoplasm of cervix uteri

== ENCOUNTER 2018-02-14 22:40 | Emergency (ER) | payer MEDICAID ==
[2018-02-14 22:40] VITALS: BMI 34.0
[2018-02-14] MEDS ORDERED: Sodium Chloride 0.9% 1,000 ML IV ONE (23:10)
--- NOTE | 2018-02-14 23:10 | C.PDOC ---
History Of Present Illness 47 year old female with PMHx of DM presents to the ED for evaluation on elevated blood sugar. Patient reports that while at home she checked her sugar at home before eating and noticed it was high. Patient gave herself 70/30 10 units of Novolog [employer]. Patient denies fever, chills, nausea, vomit, diarrhea, headache, dizziness, weakness, numbness. Time Seen by Provider: 02/14/18 23:10 Chief Complaint (Nursing): High Blood Sugar History Per: Patient History/Exam Limitations: no limitations Onset/Duration Of Symptoms: Hrs Current Symptoms Are (Timing): Still Present Severity: None Recent travel outside of the [place]: No Additional History Per: Patient Past Medical History Reviewed: Historical Data, Nursing Documentation, Vital Signs Vital Signs: Last Vital Signs Temp 98.4 F 02/14/18 23:01 Pulse 95 H 02/14/18 23:01 Resp 20 02/14/18 23:01 BP 141/90 02/14/18 23:01 Pulse Ox 99 02/14/18 23:01 - Medical History PMH: Anemia, Diabetes, Gastritis, HTN, Hypercholesterolemia, Malignancy (cervical CA post chemo), Pulmonary Embolism, Chronic Kidney Disease Surgical History: Endoscopy Denies: Pacemaker - [facility] Procedures CERVICAL CANAL DILATION (07/22/13) DILATION OF BILATERAL URETERS WITH INTRALUMINAL DEVICE, ENDO (02/09/18) DILATION OF LEFT URETER WITH INTRALUMINAL DEVICE, ENDO (10/31/15) ENDOSCOP DEST OF OTH LESION OR TISU OF LRG INTESTN (08/14/14) EXCISION OF DUODENUM, ENDO, DIAGN (10/31/15) EXCISION OF STOMACH, PYLORUS, ENDO, DIAGN (10/31/15) FLUOROSCOPY OF KIDNEYS, URETERS AND BLADDER (02/09/18) INJECT ANTICOAGULANT (12/03/13) INJECT CA CHEMOTHER NEC (06/03/13) INJECT/INFUSE ELECTROLYT (09/07/14) INJECT/INFUSE NEC (09/07/14) OTHER ENDOSCOPY OF SM INTEST (06/03/13) PACKED CELL TRANSFUSION (12/03/13) PERCU NEPHROSTM W/O FRAG (06/03/13) PERCUTANEOUS PYELOGRAM (12/03/13) PLICATION OF VENA CAVA (12/03/13) RADIOTHERAPEUT PROC NEC (06/03/13) REMOV PYELOS/NEPHROS TUB (12/03/13) REMOVAL OF DRAINAGE DEVICE FROM URETER, ENDO (10/31/15) REMOVAL OF INTRALUMINAL DEVICE FROM URETER, ENDO (02/09/18) TRANSFUSE NONAUT RED BLOOD CELLS IN PERIPH VEIN, PERC (10/31/15) TU DESTRUC BLADD LES NEC (05/25/13) URETERAL CATHETERIZATION (12/03/13) VACCINATION NEC (12/03/13) Family History: States: Unknown Family Hx - Social History Hx Tobacco Use: No Hx Alcohol Use: No Hx Substance Use: No - Immunization History Hx Tetanus Toxoid Vaccination: No Hx Influenza Vaccination: No Hx Pneumococcal Vaccination: No Review Of Systems Constitutional: Negative for: Fever, Chills Cardiovascular: Negative for: Chest Pain Respiratory: Negative for: Cough, Shortness of Breath Gastrointestinal: Negative for: Nausea, Vomiting, Abdominal Pain Skin: Negative for: Rash Neurological: Negative for: Headache Physical Exam - Physical Exam Appears: Non-toxic, No Acute Distress Skin: Warm, Dry Head: Normacephalic Eye(s): bilateral: Normal Inspection Oral Mucosa: Moist Neck: Supple Chest: Symmetrical Cardiovascular: Rhythm Regular Respiratory: No Rales, No Rhonchi, No Wheezing Gastrointestinal/Abdominal: Soft, No Tenderness, No Guarding, No Rebound Extremity: Bilateral: Atraumatic, Normal Color And Temperature, Normal ROM Neurological/Psych: Oriented x3, Normal Speech, Normal Cognition Gait: Steady ED Course And Treatment - Laboratory Results Result Diagrams: 02/14/18 23:27 02/14/18 23:27 O2 Sat by Pulse Oximetry: 99 (ON RA) Pulse Ox Interpretation: Normal Progress Note: Plan: - VBG. - LAbs. - IV fluids. - Rocephin IVPB. - UA Disposition Counseled Patient/Family Regarding: Studies Performed, Diagnosis, Need For Followup, Rx Given - Disposition Referrals: Cherelle Friedman MD [Staff Provider] - Disposition: HOME/ ROUTINE Disposition Time: 23:10 Condition: FAIR Additional Instructions: Por favor regrese si los sntomas recurren. Revise bernstein azcar al menos 4 veces al da y mantenga un registro Prescriptions: Nitrofurantoin Macrocrystals [Macrobid] 1 cap PO BID #14 cap Instructions: Urinary Tract Infection, Adult (DC), Hyperglycemia, Adult (DC) Forms: [employer] (Sammarinese) Print Language: JAMAICAN - Clinical Impression Clinical Impression: Hyperglycemia, UTI (urinary tract infection) - Scribe Statement The provider has reviewed the documentation as recorded by the Scribe Porfirio Wharton All medical record entries made by the Scribe were at my direction and personally dictated by me. I have reviewed the chart and agree that the record accurately reflects my personal performance of the history, physical exam, medical decision making, and the department course for this patient. I have also personally directed, reviewed, and agree with the discharge instructions and disposition.
[2018-02-14 23:31] LABS: BASO # 0.1 K/uL (0.0-0.2); BASO % 1.1 % (0.0-2.0); EOS # 0.3 K/uL (0.0-0.7); EOS % 5.8 % (0.0-4.0); LYMPH % 33.4 % (20.0-40.0); MEAN CELL VOLUME 75.8 fL (81.0-99.0); MEAN CORPUSCULAR HEMOGLOBIN 24.2 pg (27.0-31.0); MEAN CORPUSCULAR HGB CONC 31.9 g/dL (33.0-37.0); MEAN PLATELET VOLUME 8.3 fL (7.2-11.7); MONO # 0.4 K/uL (0.0-0.8); MONO % 6.9 % (0.0-10.0); NEUT # 3.1 K/uL (1.8-7.0); NEUT % 52.8 % (50.0-75.0); NRBC % 0.2 % (0.0-2.0); RBC 3.74 Mil/uL (3.80-5.20); RED CELL DISTRIBUTION WIDTH 14.6 % (11.5-14.5); WHITE BLOOD COUNT 5.9 K/uL (4.8-10.8)
[2018-02-14 23:34] LABS: HCG,QUALITATIVE URINE NEGATIVE (NEGATIVE)
[2018-02-14 23:35] LABS: VENOUS BLOOD GAS BASE EXCESS -0.4 mmol/L (0.0-2.0); VENOUS BLOOD GAS PCO2 48 mmHg (40-60); VENOUS BLOOD GAS PO2 29 mm/Hg (30-55); VENOUS BLOOD PH 7.34 (7.32-7.43)
[2018-02-14 23:45] LABS: SQUAMOUS EPITHIAL 1 /hpf (0-5); URINE BACTERIA FEW (<OCC); URINE BILIRUBIN NEGATIVE (NEGATIVE); URINE BLOOD 3+ (NEGATIVE); URINE CLARITY Hazy (Clear); URINE COLOR Straw (YELLOW); URINE GLUCOSE (UA) 3+ mg/dL (Normal); URINE LEUKOCYTE ESTERASE 3+ Leu/uL (Negative); URINE PROTEIN 2+ mg/dL (NEGATIVE); URINE UROBILINOGEN NORMAL mg/dL (0.2-1.0)
[2018-02-14 23:56] LABS: ALB/GLOB RATIO 0.8 (1.0-2.1); ALBUMIN 4.1 g/dL (3.5-5.0); CALCIUM 9.2 mg/dl (8.6-10.4)
[2018-02-14] MEDS ORDERED: cefTRIAXone IV 1 gm in Dextros 50 ML IVPB ONE (23:56)
[2018-02-15] MEDS ORDERED: Sodium Chloride 0.9% 1,000 ML ONE (00:06)
[2018-02-15 03:38] VITALS: BP 134/90; PULSE 90; RESP 20; TEMP 98.2; O2SAT 98
== END 2018-02-15 03:38 | disposition home or self-care (01) ==
LOC: C.ER 22:40
DX: E11.65 Type 2 diabetes mellitus with hyperglycemia (principal); N39.0 Urinary tract infection, site not specified; Z79.4 Long term (current) use of insulin
CPT/HCPCS: 80053; 81001; 82009; 82803; 82948; 84703; 85025; 96361; 96374; 99284; J0696; J7030

== ENCOUNTER 2018-05-07 12:10 | Emergency (ER) | payer MEDICAID ==
[2018-05-07 12:10] VITALS: BMI 34.0
[2018-05-07 12:26] VITALS: BP 155/93; PULSE 104; RESP 18; TEMP 97.9; O2SAT 95
--- NOTE | 2018-05-07 13:08 | C.PDOC ---
History Of Present Illness 47 y/o female presents to the ED complaining of a sore throat for the last 3 days. No fevers or chills. Patient reports many sick contacts at home. She has not been taking any pain meds. Patient reports feeling as if something is stuck in her throat. She denies any dysphagia, dysphonia, weight gain, or weight loss. Time Seen by Provider: 05/07/18 13:01 Chief Complaint (Nursing): ENT Problem History Per: Patient History/Exam Limitations: None Onset/Duration Of Symptoms: Days (3) Current Symptoms Are (Timing): Still Present Symptoms Have Been: Continuous Past Medical History Reviewed: Historical Data, Nursing Documentation, Vital Signs Vital Signs: Last Vital Signs Temp 97.9 F 05/07/18 12:22 Pulse 104 H 05/07/18 12:22 Resp 18 05/07/18 12:22 BP 155/93 H 05/07/18 12:22 Pulse Ox 95 05/07/18 12:22 - Medical History PMH: Anemia, Diabetes, Gastritis, HTN, Hypercholesterolemia, Malignancy (cervical CA post chemo), Pulmonary Embolism, Chronic Kidney Disease Surgical History: Endoscopy Denies: Pacemaker - [facility] Procedures CERVICAL CANAL DILATION (07/22/13) DILATION OF BILATERAL URETERS WITH INTRALUMINAL DEVICE, ENDO (02/09/18) DILATION OF LEFT URETER WITH INTRALUMINAL DEVICE, ENDO (10/31/15) ENDOSCOP DEST OF OTH LESION OR TISU OF LRG INTESTN (08/14/14) EXCISION OF DUODENUM, ENDO, DIAGN (10/31/15) EXCISION OF STOMACH, PYLORUS, ENDO, DIAGN (10/31/15) FLUOROSCOPY OF KIDNEYS, URETERS AND BLADDER (02/09/18) INJECT ANTICOAGULANT (12/03/13) INJECT CA CHEMOTHER NEC (06/03/13) INJECT/INFUSE ELECTROLYT (09/07/14) INJECT/INFUSE NEC (09/07/14) OTHER ENDOSCOPY OF SM INTEST (06/03/13) PACKED CELL TRANSFUSION (12/03/13) PERCU NEPHROSTM W/O FRAG (06/03/13) PERCUTANEOUS PYELOGRAM (12/03/13) PLICATION OF VENA CAVA (12/03/13) RADIOTHERAPEUT PROC NEC (06/03/13) REMOV PYELOS/NEPHROS TUB (12/03/13) REMOVAL OF DRAINAGE DEVICE FROM URETER, ENDO (10/31/15) REMOVAL OF INTRALUMINAL DEVICE FROM URETER, ENDO (02/09/18) TRANSFUSE NONAUT RED BLOOD CELLS IN PERIPH VEIN, PERC (10/31/15) TU DESTRUC BLADD LES NEC (05/25/13) URETERAL CATHETERIZATION (12/03/13) VACCINATION NEC (12/03/13) Family History: States: Unknown Family Hx - Social History Hx Tobacco Use: No Hx Alcohol Use: No Hx Substance Use: No - Immunization History Hx Tetanus Toxoid Vaccination: No Hx Influenza Vaccination: No Hx Pneumococcal Vaccination: No Review Of Systems Except As Marked, All Systems Reviewed And Found Negative. Constitutional: Negative for: Fever, Chills ENT: Positive for: Throat Pain. Negative for: Other (dsyphagia, dysphonia) Cardiovascular: Negative for: Palpitations Respiratory: Negative for: Shortness of Breath, Wheezing Gastrointestinal: Negative for: Nausea, Vomiting Musculoskeletal: Negative for: Neck Pain Neurological: Negative for: Weakness, Dizziness Physical Exam - Physical Exam Appears: Non-toxic, No Acute Distress Skin: Warm, Dry, No Rash Head: Atraumatic, Normacephalic Eye(s): bilateral: Normal Inspection, PERRL, EOMI Oral Mucosa: Moist Throat: Erythema (mild erythema to oropharynx), No Exudate, Other (enlarged cryptic tonsils bilaterally without erythema) Neck: Trachea Midline, Supple, Other (No thyromegaly, Able to swallow normally) Lymphatic: No Adenopathy (no submandibular masses, tenderness, or lymphadenopathy) Chest: Symmetrical Cardiovascular: Rhythm Regular, No Murmur Respiratory: Normal Breath Sounds, No Rhonchi, No Stridor, No Wheezing Extremity: Bilateral: Atraumatic, Normal ROM Pulses: Left Radial: Normal, Right Radial: Normal Neurological/Psych: Oriented x3, Normal Speech, Normal Cranial Nerves ED Course And Treatment O2 Sat by Pulse Oximetry: 95 (RA) Pulse Ox Interpretation: Normal Medical Decision Making Medical Decision Making: sore throat 2 days normal voice normal swallow/airway erythema of OP but no tonsillitis cryptic/scarred tonsils c/w prior bacterial tonsillitis, but not today Motrin PRN Disposition Doctor Will See Patient In The: Office Counseled Patient/Family Regarding: Studies Performed, Diagnosis - Disposition Referrals: [facility] [Outside] [facility] [Outside] [facility] [Outside] [facility] [Outside] Jaswinder Severino MD [Staff Provider] - Disposition: HOME/ ROUTINE Disposition Time: 13:08 Condition: GOOD Additional Instructions: ibuprofeno/advil 400-600 mg cada 6 horas mirza necessario para molestia del garganta [place] sintomas van a durar 1-2 semanas mas Sigue con la [facility] mirza necessario Instructions: Viral Pharyngitis Forms: [employer] (Omani) Print Language: PERSIAN - Clinical Impression Clinical Impression: Sore throat (viral) - Scribe Statement The provider has reviewed the documentation as recorded by the Nikkieibrufino Camargo Provider Attestation: All medical record entries made by the Nikkieibe were at my direction and personally dictated by me. I have reviewed the chart and agree that the record accurately reflects my personal performance of the history, physical exam, medical decision making, and the department course for this patient. I have also personally directed, reviewed, and agree with the discharge instructions and disposition.
== END 2018-05-07 13:16 | disposition home or self-care (01) ==
LOC: C.ER 12:10
DX: J02.9 Acute pharyngitis, unspecified (principal)